=== PATIENT | female | born 1940 | race Caucasian/White ===

== ENCOUNTER 2020-01-19 11:08 | Emergency (ER) | payer MEDICARE, OTHER, SELFPAY ==
[2020-01-19] VITALS (7 sets, daily range): BP systolic 116–160; BP diastolic 67–86; PULSE 62–70; RESP 18–27; TEMP 36.8; O2SAT 96–100
--- NOTE | 2020-01-19 11:20 | DI.RAD.S_ITS ---
PROCEDURE: XR CHEST 1V INDICATIONS: chest pain TECHNIQUE: One view of the chest was acquired. COMPARISON: None. FINDINGS: Surgical changes and devices: Surgical clips project over the right lung apex.. Lungs and pleura: Lungs are clear no acute opacities. Small nodular densities project over the lateral periphery of the right midlung which may represent foreign bodies external to the patient or calcified granulomas. No pleural effusions or pneumothorax. Mediastinum: Mediastinal contours appear normal. Heart size is normal. Bones and chest wall: No suspicious bony lesions. Overlying soft tissues appear unremarkable. IMPRESSION: No acute cardiopulmonary disease process. Dictated by: Mackenzie López MD, PhD on 01/19/2020 at 11:49 Approved by: Mackenzie López MD, PhD on 01/19/2020 at 11:50
--- NOTE | 2020-01-19 11:29 | ED_ITS ---
HPI - Chest Pain General Chief Complaint: Chest Pain Stated Complaint: Chest pain, labored breathing Time Seen by Provider: 01/19/20 11:23 Source: patient Mode of arrival: Ambulatory Limitations: no limitations History of Present Illness HPI narrative: Patient is an 79-year-old female. No prior history of cardiovas cular disease. She says that she has been told that she has heart failure. States that she does have a history of COPD. Has oxygen at home but rarely uses it except for over the past 24 hours. States she did have a workup for weight initially was thought to be a TIA which resulted in her having a right-sided carotid endarterectomy on Sunday. She stated that during this workup she was told that she did not have a TIA or stroke. She was discharged from the hospital on Sunday. States Sunday night she was uncomfortable especially with lying down. Did have some shortness of breath which she states that she felt like she did not have while she was in the hospital. This worsened yester day. She states she has had shortness of breath and chest pain constantly since yesterday afternoon. States she could not lay flat last night secondary to shortness of breath. She states that at 1 point she was told that she needed to be on a ?water pill? she states that she is not taking this. She also was told that she was ?borderline anemic ?during her hospital stay however she was not transfused any blood. She was given a prescription for iron. Related Data Home Medications Medication Instructions Recorded Confirmed Breo Ellipta 1 puff INH DIRECTED #0 02/15/18 donepezil 10 mg PO DAILY #0 02/15/18 01/19/20 Holy Basil 1 dose PO DIRECTED 01/19/20 01/19/20 Vitamin D3 1 cap PO DAILY 01/19/20 01/19/20 acetaminophen 650 mg PO Q4H PRN 01/19/20 01/19/20 albuterol sulfate 0.63 mg INHALATION QID 01/19/20 01/19/20 aspirin 81 mg PO DAILY 01/19/20 01/19/20 clopidogrel 75 mg PO DAILY 01/19/20 01/19/20 docusate sodium 100 - 200 mg PO BID PRN 01/19/20 01/19/20 ezetimibe 10 mg PO DAILY 01/19/20 01/19/20 omega 7-lxo-zmj-fish oil [[place]-3] 1 cap PO DAILY 01/19/20 01/19/20 omeprazole 20 mg PO DAILY 01/19/20 01/19/20 rosuvastatin 20 mg PO DAILY 01/19/20 01/19/20 spironolactone 25 mg PO DAILY 01/19/20 01/19/20 vit C-vit S-ddftjp-izbm-lutein 1 cap PO DAILY 01/19/20 01/19/20 [PreserVision Lutein] Allergies Allergy/AdvReac Type Severity Reaction Status Date / Time No Known Drug Allergies Allergy Verified 01/19/20 11:34 Review of Systems Constitutional Constitutional: Denies fever(s) Cardiovascular Cardiovascular: Reports chest pain, Denies rapid heart rate, Reports edema, Denies irregular heart rhythm, Reports leg edema, Reports dyspnea and Reports dyspnea on exertion Respiratory Respiratory: Denies cough, Reports dyspnea and Reports dyspnea on exertion Gastrointestinal Gastrointestinal: Denies abdominal pain, Denies nausea and Denies vomiting Genitourinary Genitourinary: Denies dysuria Musculoskeletal Musculoskeletal: Denies myalgias and Denies arthralgias Integumentary/Breasts Skin/Breast: Denies lesions and Denies rash Hematologic/Lymphatic Hematologic/Lymphatic: Denies easy bleeding and Denies easy bruising Patient History Medical History Amaurosis fugax, right eye (Acute) Anemia (Acute) Congestive heart failure (Acute) COPD (chronic obstructive pulmonary disease) (Acute) History of tobacco use (Acute) Social History Smoking Status: Former smoker Exam Initial Vital Signs Initial Vital Signs: Vital Signs Temperature 98.3 F 01/19/20 11:10 Pulse Rate 70 01/19/20 11:10 Respiratory Rate 27 H 01/19/20 11:10 Blood Pressure 145/75 H 01/19/20 11:10 Pulse Oximetry 97 01/19/20 11:10 Const General: cooperative, healthy appearing, comfortable and well developed Limitations: mental status not altered [facility] Head: normal to inspection and normocephalic Resp Effort & Inspection: normal respiratory effort Auscultation: clear to auscultation bilaterally Cardio Rate: regular rate Rhythm: regular rhythm Skin Lesions: no lesions Rashes: no rashes Neuro General: alert and awake Cognition: normal cognition Speech: speech normal Extrem General: edema Psych Appearance: grossly normal and well kempt Scores GCS R[place]on coma scale eye opening: Spontaneous Nancy coma scale verbal response: Orientated Nancy coma scale motor response: Obey commands R[place] coma scale total score: 15 Course Orders Ordered: ED Orders 01/19/20 11:20 XR chest 1V Stat EKG-12 Lead Stat 01/19/20 11:24 Complete Blood Count AUTO DIFF Stat Comprehensive Metabolic Panel Stat D Dimer Stat Lipase Stat Magnesium Stat NT-proBNP (BNP-Adult 18+) Stat Troponin & CK Cardiac Panel Stat Sodium Chloride (Normal Saline 0.9%) 1,000 mls @ 150 mls/hr IV CONT PEACE Last Admin: 01/19/20 11:46 Dose: Not Given Documented by: ARIANNA Discontinued Medications Aspirin (Aspirin Chew) 324 mg PO NOW ONE Stop: 01/19/20 11:21 Last Admin: 01/19/20 11:49 Dose: 324 mg Documented by: ARIANNA Furosemide (Lasix) 60 mg IV NOW ONE Stop: 01/19/20 12:02 Last Admin: 01/19/20 12:32 Dose: 60 mg Documented by: PETRA Vital Signs Vital signs: Vital Signs - 8 hr 01/19/20 11:10 01/19/20 11:30 01/19/20 12:02 Temperature 98.3 F Pulse Rate 70 70 70 Respiratory Rate 27 H 24 24 Blood Pressure 145/75 H Blood Pressure [Right Arm] 139/81 116/67 Pulse Oximetry 97 97 97 01/19/20 12:45 01/19/20 13:15 01/19/20 13:45 Temperature Pulse Rate 65 62 62 Respiratory Rate 22 24 18 Blood Pressure Blood Pressure [Right Arm] 154/73 H 160/86 H 142/74 H Pulse Oximetry 97 99 96 MDM - Chest Pain Lab Data Attestation: I reviewed the patient's lab results. Result diagrams: 01/19/20 11:24 01/19/20 11:24 Labs: Lab Results 01/19/20 01/19/20 01/19/20 Range/Units 11:24 11:24 11:24 WBC 6.2 (4.5-11.0) X10^3/uL RBC 3.24 L (4.0-5.2) X10^6/uL Hgb 9.3 L (12.0-16.0) g/dL Hct 28.0 L (36-46) % MCV 86.3 (80-100) fL MCH 28.6 (26-34) PG MCHC 33.1 (30-36) % RDW 14.8 (11.6-14.8) % Plt Count 217 (150-400) X10^3/uL Neut % (Auto) 73.8 (50-75) % Lymph % (Auto) 12.7 L (25-40) % [place] % (Auto) 11.5 (3-14) % Eos % (Auto) 1.3 L (2-4) % Baso % (Auto) 0.7 (0-2) % Neut # (Auto) 4500 (0151-0555) /uL Lymph # (Auto) 800 L (5363-0491) /uL [place] # (Auto) 700 (0-900) /uL Eos # (Auto) 100 (0-450) /uL Baso # (Auto) 0 (0-100) /uL D-Dimer (<230) ng/mL Sodium 134 L (137-145) mmol/L Potassium 3.6 (3.4-5.1) mmol/L Chloride 98 (98-107) mmol/L Carbon Dioxide 28 (22-32) mmol/L BUN 12 (7-17) mg/dL Creatinine 0.70 (0.52-1.04) mg/dL Estimated GFR > 60.0 (>60) mL/min BUN/Creatinine Ratio 17.1 (6-22) Glucose 150 H (80-110) mg/dL Calcium 8.9 (8.4-10.2) mg/dL Magnesium 1.8 (1.6-2.3) mg/dL Total Bilirubin 0.4 (0.2-1.3) mg/dL AST 35 (14-36) IU/L ALT 27 (<35) IU/L Alkaline Phosphatase 64 (38-126) U/L Total Creatine Kinase 62 (30-135) U/L CK-MB (CK-2) TNP CK-MB (CK-2) Rel Index TNP Troponin I < 0.012 (0.01-0.034) ng/mL NT-Pro-B Natriuret Pep 1280 H (<450) pg/mL Total Protein 6.3 (6.3-8.2) g/dL Albumin 3.6 (3.5-5.0) g/dL Globulin 2.7 (1.7-4.1) g/dL Albumin/Globulin Ratio 1.3 (1.0-2.8) Lipase 60 (23-300) U/L 01/19/20 Range/Units 11:24 WBC (4.5-11.0) X10^3/uL RBC (4.0-5.2) X10^6/uL Hgb (12.0-16.0) g/dL Hct (36-46) % MCV (80-100) fL MCH (26-34) PG MCHC (30-36) % RDW (11.6-14.8) % Plt Count (150-400) X10^3/uL Neut % (Auto) (50-75) % Lymph % (Auto) (25-40) % [place] % (Auto) (3-14) % Eos % (Auto) (2-4) % Baso % (Auto) (0-2) % Neut # (Auto) (8145-5102) /uL Lymph # (Auto) (2477-0048) /uL [place] # (Auto) (0-900) /uL Eos # (Auto) (0-450) /uL Baso # (Auto) (0-100) /uL D-Dimer 367 H (<230) ng/mL Sodium (137-145) mmol/L Potassium (3.4-5.1) mmol/L Chloride (98-107) mmol/L Carbon Dioxide (22-32) mmol/L BUN (7-17) mg/dL Creatinine (0.52-1.04) mg/dL Estimated GFR (>60) mL/min BUN/Creatinine Ratio (6-22) Glucose (80-110) mg/dL Calcium (8.4-10.2) mg/dL Magnesium (1.6-2.3) mg/dL Total Bilirubin (0.2-1.3) mg/dL AST (14-36) IU/L ALT (<35) IU/L Alkaline Phosphatase (38-126) U/L Total Creatine Kinase (30-135) U/L CK-MB (CK-2) CK-MB (CK-2) Rel Index Troponin I (0.01-0.034) ng/mL NT-Pro-B Natriuret Pep (<450) pg/mL Total Protein (6.3-8.2) g/dL Albumin (3.5-5.0) g/dL Globulin (1.7-4.1) g/dL Albumin/Globulin Ratio (1.0-2.8) Lipase (23-300) U/L Imaging Data Chest x-ray: Radiologist's Impression: [address] [address] XRay Report Signed Patient: Delfino Otero [facility]#: [id number] : 9Acct:[id number] Age/Sex: 79 / FDate of Service: 01/19/20 Loc: ED Accession Number: [id number] Procedure: XR chest 1V Ordering Provider: Alex Myles D.O. PROCEDURE: XR CHEST 1V INDICATIONS: chest pain TECHNIQUE: One view of the chest was acquired. COMPARISON: None. FINDINGS: Surgical changes and devices: Surgical clips project over the right lung apex.. Lungs and pleura: Lungs are clear no acute opacities. Small nodular densities project over the lateral periphery of the right midlung which may represent foreign bodies external to the patient or calcified granulomas. No pleural effusions or pneumothorax. Mediastinum: Mediastinal contours appear normal. Heart size is normal. Bones and chest wall: No suspicious bony lesions. Overlying soft tissues appear unremarkable. IMPRESSION: No acute cardiopulmonary disease process. Dictated by: Mackenzie López MD, PhD on 01/19/2020 at 11:49 Approved by: Mackenzie López MD, PhD on 01/19/2020 at 11:50 ECG Data Attestation: I personally reviewed and interpreted this ECG as follows: Prior ECG tracings: not available for review Interpretation: Sinus rhythm Ventricular rate is 67 Normal axis Normal QRS Normal QTC Nonspecific ST T wave changes MDM Narrative Medical decision making narrative: Patient is anemic however not at the point were I would recommend transfusion. She does have iron at home that she should be taking. I do not feel that this is the reason for her arrival today. Does have an elevated BNP. Unsure this is baseline. I have no prior BNPs for comparison. Her clinical presentation is concerning for CHF. She has had a diagnosis of CHF in the past. She does not know what her last ejection fraction was. Her medicine list does have spironolactone listed however per the patient's own report she has not taking it in 2 weeks. She did have a recent admission to the hospital for right-sided carotid endarterectomy where she did receive fluids. Her chest x-ray does not show definitive fluid overload and her clinical exam does not have any crackles. She does have a history of COPD. Does have oxygen at home that she can use as needed. Afebrile. Low suspicion for pneumonia. Her D-dimer is negative. Low suspicion for PE. EKG has nonspecific changes. The EKG machine does rate and acute SD however disagree this. Her clinical presentation is not consistent with this. She does not have any ST elevations. She received Lasix here in the ER. She did urinate multiple times. She states that after urinating she feels much better. She states that she feels like she can't take a deep breath. She no longer has any chest discomfort. Patient states that she feels like she can go home. She does not want to be admitted to the hospital. I do not feel that this is unreasonable given her clinical presentation. We did discuss the importance of her taking her spironolactone. She was instructed that she could take it again this evening. She was given strict return precautions and follow-up instructions. She expressed understanding and agreement. Discharge Plan Departure Patient Disposition: Home Clinical Impression: CHF (congestive heart failure) Qualifiers: Heart failure type: unspecified Heart failure chronicity: unspecified Qualified Code(s): I50.9 - Heart failure, unspecified Instructions: DI for Heart Failure Activity Restrictions/Additional Instructions: I recommend that you take all of your medications as directed to include the spironolactone. You can take the spironolactone this evening despite us given you the Lasix here in the emergency department. I recommend that you follow all of your postoperative instructions given to you by the vascular surgeon. Recommend you contact your primary provider and also your department sales manager for a follow-up. Please return to the emergency department for any new or worsening symptoms Prescriptions: No Action donepezil 10 MG tablet 10 mg PO DAILY Qty: 0 RF: 0 Breo Ellipta 100 MCG/25 MCG blister with device 1 puff INH DIRECTED Qty: 0 RF: 0 albuterol sulfate 0.63 mg/3 mL Solution For Nebulization 0.63 mg INHALATION QID RF: 0 acetaminophen 325 mg Tablet 650 mg PO Q4H PRN (Reason: Fever Or Pain) RF: 0 docusate sodium 100 mg Capsule 100 - 200 mg PO BID PRN (Reason: Constipation) RF: 0 Holy Basil 1 dose PO DIRECTED RF: 0 clopidogrel 75 mg Tablet 75 mg PO DAILY RF: 0 aspirin 81 mg Tablet,Delayed Release (Dr/Ec) 81 mg PO DAILY RF: 0 spironolactone 25 mg Tablet 25 mg PO DAILY RF: 0 omeprazole 20 mg Capsule,Delayed Release(Dr/Ec) 20 mg PO DAILY RF: 0 ezetimibe 10 mg Tablet 10 mg PO DAILY RF: 0 rosuvastatin 20 mg Tablet 20 mg PO DAILY RF: 0 PreserVision Lutein 226 mg-200 unit -5 mg-0.8 mg Capsule 1 cap PO DAILY RF: 0 [place]-3 350 mg-235 mg- 90 mg-597 mg Capsule,Delayed Release(Dr/Ec) 1 cap PO DAILY RF: 0 Vitamin D3 1 cap PO DAILY RF: 0
[2020-01-19 11:32] LABS: Add Manual Diff / Slide Review NO; Basophils Absolute Auto 0 /uL (0-100); Basophils Percent Auto 0.7 % (0-2); Eosinophils Absolute Auto 100 /uL (0-450); Eosinophils Percent Auto 1.3 % (2-4); Hemoglobin 9.3 g/dL (12.0-16.0); Lymphocytes Absolute Auto 800 /uL (1100-4500); Lymphocytes Percent Auto 12.7 % (25-40); Mean Corpuscular HGB Conc 33.1 % (30-36); Mean Corpuscular Hemoglobin 28.6 PG (26-34); Mean Corpuscular Volume 86.3 fL (80-100); Monocytes Absolute Auto 700 /uL (0-900); Monocytes Percent Auto 11.5 % (3-14); Neutrophils Absolute Auto 4500 /uL (1500-7000); Neutrophils Percent Auto 73.8 % (50-75); Platelet Count 217 X10^3/uL (150-400); Red Blood Cell Count 3.24 X10^6/uL (4.0-5.2); Red Cell Distribution Width 14.8 % (11.6-14.8); White Blood Cell Count 6.2 X10^3/uL (4.5-11.0)
--- NOTE | 2020-01-19 11:36 | PC.NURSE ---
EKG noted STEMI, reviewed immediately by Dr. Myles. Getting old EKG by from Prov done last week.
--- NOTE | 2020-01-19 11:39 | PC.NURSE ---
Noted 5+ lb weight gain. Has not been taking spirolactone this past week. I think they left it out of my box.
[2020-01-19 11:45] LABS: Alanine Aminotransferase 27 IU/L (<35); Albumin 3.6 g/dL (3.5-5.0); Albumin Globulin Ratio 1.3 (1.0-2.8); Alkaline Phosphatase 64 U/L (38-126); Aspartate Aminotransferase 35 IU/L (14-36); BUN Creatinine Ratio 17.1 (6-22); Bilirubin Total 0.4 mg/dL (0.2-1.3); Blood Urea Nitrogen 12 mg/dL (7-17); Calcium 8.9 mg/dL (8.4-10.2); Carbon Dioxide 28 mmol/L (22-32); Chloride 98 mmol/L (98-107); Creatine Kinase 62 U/L (30-135); Estimated Glomerular Filt Rate > 60.0 mL/min (>60); Globulin 2.7 g/dL (1.7-4.1); Glucose 150 mg/dL (80-110); HEMOLYSIS < 15 (0-50); Lipase 60 U/L (23-300); Magnesium 1.8 mg/dL (1.6-2.3); Potassium 3.6 mmol/L (3.4-5.1); Sodium 134 mmol/L (137-145); Total Protein 6.3 g/dL (6.3-8.2)
[2020-01-19] MEDS: ASPIRIN 81 MG CHEW TAB 324 MG PO (11:49)
[2020-01-19 11:56] LABS: Troponin I < 0.012 ng/mL (0.01-0.034)
[2020-01-19 11:58] LABS: NT-proBNP (BNP-Adult 18+) 1280 pg/mL (<450)
[2020-01-19] MEDS: FUROSEMIDE 100 MG/10 ML VIAL 60 MG IV (12:32)
[2020-01-19 13:13] LABS: D Dimer 367 ng/mL (<230)
== END 2020-01-19 14:45 | disposition home or self-care (01) ==
PROVIDERS: Emergency Provider Emergency Medicine
DX: I50.9 Heart failure, unspecified (principal); D64.9 Anemia, unspecified; J44.9 Chronic obstructive pulmonary disease, unspecified
CPT/HCPCS: 36415; 71045; 80053; 82550; 83690; 83735; 83880; 84484; 85025; 85379; 93005; 93010; 96374; 99285; J1940

== ENCOUNTER 2020-01-27 22:47 | Emergency (ER) | payer MEDICARE, OTHER, SELFPAY ==
[2020-01-27 22:58] VITALS: BMI 20.7
[2020-01-27 23:02] VITALS: BP 145/86; PULSE 65; RESP 19; TEMP 36.8; O2SAT 99
--- NOTE | 2020-01-27 23:21 | DI.RAD.S_ITS ---
PROCEDURE: XR CHEST 1V INDICATIONS: chest pain TECHNIQUE: One view of the chest was acquired. COMPARISON: [facility], CR, XR CHEST 1V, 01/19/2020, 11:22. FINDINGS: Surgical changes and devices: Right apical surgical clips. Lungs and pleura: Calcified granuloma within the right midlung. Lungs are otherwise clear. No pleural effusions or pneumothorax. Mediastinum: Mediastinal contours appear normal. Heart size is normal. Bones and chest wall: No suspicious bony lesions. Overlying soft tissues appear unremarkable. IMPRESSION: No acute process. Dictated by: Emily Block M.D. on 01/28/2020 at 8:12 Approved by: Emily Block M.D. on 01/28/2020 at 8:13
[2020-01-27 23:45] LABS: Add Manual Diff / Slide Review NO; Basophils Absolute Auto 100 /uL (0-100); Basophils Percent Auto 1.2 % (0-2); Eosinophils Absolute Auto 300 /uL (0-450); Eosinophils Percent Auto 6.9 % (2-4); Hematocrit 27.5 % (36-46); Hemoglobin 9.1 g/dL (12.0-16.0); Lymphocytes Absolute Auto 1300 /uL (1100-4500); Lymphocytes Percent Auto 26.8 % (25-40); Mean Corpuscular Hemoglobin 28.8 PG (26-34); Mean Corpuscular Volume 87.2 fL (80-100); Monocytes Absolute Auto 500 /uL (0-900); Monocytes Percent Auto 9.9 % (3-14); Neutrophils Absolute Auto 2700 /uL (1500-7000); Neutrophils Percent Auto 55.2 % (50-75); Platelet Count 309 X10^3/uL (150-400); Red Blood Cell Count 3.15 X10^6/uL (4.0-5.2); Red Cell Distribution Width 15.6 % (11.6-14.8); White Blood Cell Count 4.9 X10^3/uL (4.5-11.0)
[2020-01-27 23:48] LABS: INR 0.9 (0.9-1.3); Prothrombin Time 10.4 SECONDS (10.1-12.7)
[2020-01-27 23:50] LABS: PTT Partial Thromboplastin Tim 27 SECONDS (26.4-36.2)
[2020-01-27 23:52] LABS: Alanine Aminotransferase 24 IU/L (<35); Albumin 3.7 g/dL (3.5-5.0); Albumin Globulin Ratio 1.3 (1.0-2.8); Alkaline Phosphatase 59 U/L (38-126); Aspartate Aminotransferase 31 IU/L (14-36); BUN Creatinine Ratio 29.9 (6-22); Bilirubin Total 0.2 mg/dL (0.2-1.3); Blood Urea Nitrogen 26 mg/dL (7-17); Calcium 9.2 mg/dL (8.4-10.2); Carbon Dioxide 30 mmol/L (22-32); Chloride 100 mmol/L (98-107); Creatine Kinase 74 U/L (30-135); Estimated Glomerular Filt Rate > 60.0 mL/min (>60); Globulin 2.9 g/dL (1.7-4.1); Glucose 92 mg/dL (80-110); HEMOLYSIS < 15 (0-50); Lipase 99 U/L (23-300); Potassium 4.2 mmol/L (3.4-5.1); Sodium 133 mmol/L (137-145); Total Protein 6.6 g/dL (6.3-8.2)
[2020-01-28 00:04] LABS: NT-proBNP (BNP-Adult 18+) 310 pg/mL (<450)
[2020-01-28 00:25] LABS: Troponin I < 0.012 ng/mL (0.01-0.034)
[2020-01-28 00:30] VITALS: BP 164/89; PULSE 66; RESP 22; O2SAT 96
--- NOTE | 2020-01-28 00:54 | ED_ITS ---
HPI - Chest Pain General Chief Complaint: Chest Pain Stated Complaint: chest pain, difficulty breathing Time Seen by Provider: 01/28/20 00:15 Source: patient Mode of arrival: Ambulatory Limitations: no limitations History of Present Illness HPI narrative: This is an 79-year-old female comes in with complaint of chest pain and difficulty breathing. She states that she has been having this going on for a while. She had her carotid endarterectomy in afterwards was discharged. She states she developed CHF and was seen on the 18 of January. Patient states at that time she was very short of breath, had swelling her weight was up and that has improved. Since then she still feels like she can't always take a break. She states sometimes she can walk around and she feels fine and other times she feels short of breath. She states she particularly notes chest pain and shortness of breath when she lays flat, it is improved when she sits upright. She also notices when she bends over. She states she will feel short of breath at the same time. She has not had any fevers, no chills. No cough. She states that as exerting herself does not necessarily always cause her symptoms. She states that she was put on a diuretic and has since had improvement in her symptoms but just does not feel like she is back to normal from before her surgery. She is also taking iron pills and had been offered a transfusion while at the hospital but deferred. She states she has had no nausea, no vomiting no issues with bowel movements or urination. She is on Plavix for her carotid endarterectomy for a total of 30 days and states she only has a few more days left, she has no dyslipidemia, she is on a diuretic as well as iron. She denies any diabetes, hypertension or cardiac arrhythmias. Besides her right carotid endarterectomy she has had a hysterectomy. She states she had this because her medical sales representative found it. She has not had a stress test or heart catheterization any time recently. She quit smoking about 14 years ago, drinks a glass of wine nightly and denies any illicit. She is accompanied by her fr iend at bedside Related Data Home Medications Medication Instructions Recorded Confirmed Breo Ellipta 1 puff INH DIRECTED #0 02/15/18 01/19/20 donepezil 10 mg PO DAILY #0 02/15/18 01/19/20 Holy Basil 1 dose PO DIRECTED 01/19/20 01/19/20 Vitamin D3 1 cap PO DAILY 01/19/20 01/19/20 acetaminophen 650 mg PO Q4H PRN 01/19/20 01/19/20 albuterol sulfate 0.63 mg INHALATION QID 01/19/20 01/19/20 aspirin 81 mg PO DAILY 01/19/20 01/19/20 clopidogrel 75 mg PO DAILY 01/19/20 01/19/20 docusate sodium 100 - 200 mg PO BID PRN 01/19/20 01/19/20 ezetimibe 10 mg PO DAILY 01/19/20 01/19/20 omega 0-cmr-uld-fish oil [Durant-3] 1 cap PO DAILY 01/19/20 01/19/20 omeprazole 20 mg PO DAILY 01/19/20 01/19/20 rosuvastatin 20 mg PO DAILY 01/19/20 01/19/20 spironolactone 25 mg PO DAILY 01/19/20 01/19/20 vit C-vit Q-lbnbhe-ufsw-lutein 1 cap PO DAILY 01/19/20 01/19/20 [PreserVision Lutein] Allergies Allergy/AdvReac Type Severity Reaction Status Date / Time No Known Drug Allergies Allergy Verified 01/19/20 11:34 Review of Systems Review of Systems ROS Unobtainable: All systems reviewed & are unremarkable except as noted in HPI and below Patient History Medical History Amaurosis fugax, right eye (Acute) Anemia (Acute) Congestive heart failure (Acute) COPD (chronic obstructive pulmonary disease) (Acute) History of tobacco use (Acute) Surgical History (Updated 01/28/20 @ 01:44 by Michelle Gleason DO) History of carotid endarterectomy (Acute) Social History Smoking Status: Former smoker Smoking Status: Former smoker alcohol intake frequency: 0-2 drinks per day Substance Use Type: does not use Exam Narrative Exam Narrative: GENERAL: Alert and oriented x three, thin elderly female in mild distress HEENT: Head normocephalic, atraumatic, EOMI, pupils reactive, face symmetric, moist mucous membranes NECK: Supple, full range of motion, patient has healing incision on the right neck consistent with a prior CEA, clean dry and intact with a little bit of hyperkeratosis but no erythema, discharge or other skin changes CARDIOVASCULAR: Regular rate and rhythm without murmurs, rubs or gallops. RESPIRATORY: Breath sounds equal bilaterally, no wheezes rales or rhonchi. No tachypnea. No accessory muscle use. Speaks in full sentences. ABDOMEN: Soft, nontender. Normoactive bowel sounds all 4 quadrants. No guar ding or rebound, rigidity, no mass : No CVA tenderness EXTREMITIES: Normal range of motion, no clubbing or edema. Neurovascularly intact NEUROLOGICAL: Cranial nerves II through XII grossly intact. Moving all extremities SKIN: Warm, dry, no petechiae, no rashes or lesions. Initial Vital Signs Initial Vital Signs: Vital Signs Temperature 98.3 F 01/27/20 23:02 Pulse Rate 65 01/27/20 23:02 Respiratory Rate 19 01/27/20 23:02 Blood Pressure 145/86 H 01/27/20 23:02 Pulse Oximetry 99 01/27/20 23:02 Scores HEART Score Heart Score history: Slightly Suspicious Heart Score EKG: Non-Specific repolarization disturbance Heart Score Age: > or = 65 years old Heart Score risk factors: 1-2 risk factors Heart Score troponin: < or = to normal limit Heart Score Total: 4 Course Orders Ordered: ED Orders 01/27/20 23:21 XR chest 1V Stat 01/27/20 23:30 BNP [NT-proBNP (BNP-Adult 18+)] Stat Complete Blood Count AUTO DIFF Stat Comprehensive Metabolic Panel Stat Lipase Stat Partial Thromboplastin Time Stat Prothrombin Time INR Stat Troponin & CK Cardiac Panel Stat 01/28/20 01:38 EKG-12 Lead Stat 01/28/20 02:02 Troponin I Stat Vital Signs Vital signs: Vital Signs - 8 hr 01/27/20 23:02 01/28/20 00:30 01/28/20 01:32 Temperature 98.3 F Pulse Rate 65 66 68 Respiratory Rate 19 22 20 Blood Pressure [Right Arm] 145/86 H 164/89 H 179/82 H Pulse Oximetry 99 96 98 MDM - Chest Pain Lab Data Attestation: I reviewed the patient's lab results. Result diagrams: 01/27/20 23:30 01/27/20 23:30 Labs: Lab Results 01/27/20 01/27/20 01/27/20 Range/Units 23:30 23:30 23:30 WBC 4.9 (4.5-11.0) X10^3/uL RBC 3.15 L (4.0-5.2) X10^6/uL Hgb 9.1 L (12.0-16.0) g/dL Hct 27.5 L (36-46) % MCV 87.2 (80-100) fL MCH 28.8 (26-34) PG MCHC 33.0 (30-36) % RDW 15.6 H (11.6-14.8) % Plt Count 309 (150-400) X10^3/uL Neut % (Auto) 55.2 (50-75) % Lymph % (Auto) 26.8 (25-40) % [place] % (Auto) 9.9 (3-14) % Eos % (Auto) 6.9 H (2-4) % Baso % (Auto) 1.2 (0-2) % Neut # (Auto) 2700 (2168-3687) /uL Lymph # (Auto) 1300 (2512-8864) /uL [place] # (Auto) 500 (0-900) /uL Eos # (Auto) 300 (0-450) /uL Baso # (Auto) 100 (0-100) /uL PT 10.4 (10.1-12.7) SECONDS INR 0.9 (0.9-1.3) APTT 27 (26.4-36.2) SECONDS Sodium 133 L (137-145) mmol/L Potassium 4.2 (3.4-5.1) mmol/L Chloride 100 (98-107) mmol/L Carbon Dioxide 30 (22-32) mmol/L BUN 26 H (7-17) mg/dL Creatinine 0.87 (0.52-1.04) mg/dL Estimated GFR > 60.0 (>60) mL/min BUN/Creatinine Ratio 29.9 H (6-22) Glucose 92 (80-110) mg/dL Calcium 9.2 (8.4-10.2) mg/dL Total Bilirubin 0.2 (0.2-1.3) mg/dL AST 31 (14-36) IU/L ALT 24 (<35) IU/L Alkaline Phosphatase 59 (38-126) U/L Total Creatine Kinase 74 (30-135) U/L CK-MB (CK-2) TNP CK-MB (CK-2) Rel Index TNP Troponin I < 0.012 (0.01-0.034) ng/mL NT-Pro-B Natriuret Pep 310 (<450) pg/mL Total Protein 6.6 (6.3-8.2) g/dL Albumin 3.7 (3.5-5.0) g/dL Globulin 2.9 (1.7-4.1) g/dL Albumin/Globulin Ratio 1.3 (1.0-2.8) Lipase 99 D (23-300) U/L 01/28/20 Range/Units 02:02 WBC (4.5-11.0) X10^3/uL RBC (4.0-5.2) X10^6/uL Hgb (12.0-16.0) g/dL Hct (36-46) % MCV (80-100) fL MCH (26-34) PG MCHC (30-36) % RDW (11.6-14.8) % Plt Count (150-400) X10^3/uL Neut % (Auto) (50-75) % Lymph % (Auto) (25-40) % [place] % (Auto) (3-14) % Eos % (Auto) (2-4) % Baso % (Auto) (0-2) % Neut # (Auto) (4241-9533) /uL Lymph # (Auto) (8556-5005) /uL [place] # (Auto) (0-900) /uL Eos # (Auto) (0-450) /uL Baso # (Auto) (0-100) /uL PT (10.1-12.7) SECONDS INR (0.9-1.3) APTT (26.4-36.2) SECONDS Sodium (137-145) mmol/L Potassium (3.4-5.1) mmol/L Chloride (98-107) mmol/L Carbon Dioxide (22-32) mmol/L BUN (7-17) mg/dL Creatinine (0.52-1.04) mg/dL Estimated GFR (>60) mL/min BUN/Creatinine Ratio (6-22) Glucose (80-110) mg/dL Calcium (8.4-10.2) mg/dL Total Bilirubin (0.2-1.3) mg/dL AST (14-36) IU/L ALT (<35) IU/L Alkaline Phosphatase (38-126) U/L Total Creatine Kinase (30-135) U/L CK-MB (CK-2) CK-MB (CK-2) Rel Index Troponin I < 0.012 (0.01-0.034) ng/mL NT-Pro-B Natriuret Pep (<450) pg/mL Total Protein (6.3-8.2) g/dL Albumin (3.5-5.0) g/dL Globulin (1.7-4.1) g/dL Albumin/Globulin Ratio (1.0-2.8) Lipase (23-300) U/L Imaging Data Chest x-ray: Attestation: I personally reviewed and interpreted this imaging study as follows: My Impression: No acute process, appears similar does chest x-ray from 01/19/2020 ECG Data Attestation: I personally reviewed and interpreted this ECG as follows: Interpretation: Sinus rhythm, rate of 64 P are 156 and QRS of 113 with QTC of 413. Patient has no ST elevation appreciated. No depression. She does have changes consistent with atrial enlargement. And a widened QRS. Patient's prior EKG from 01/19/2028 this appears similar except for lead V2. EKG 2. With a sinus rhythm with a rate of 61 P are 163 QRS of 117 and a QTC of 420. EKG appears similar to prior EKG from today. Nonspecific change. MDM Narrative Medical decision making narrative: Discussed with patient although some of her symptoms are not very consistent with a coronary cause she did just have a carotid endarterectomy so was likely she does have some atherosclerosis. We discussed observation which she defers. She is agreeable to a repeat 2 hour troponin EKG although she is aware that this is not as conservative measure and could easily this cardiac causes. Her symptoms do not seem consistent with a PE at this time. Chest x-ray does not appear to show any new pneumonia and she has not had any infectious symptoms. She is anemic although her anemia appears stable with her hemoglobin being 9.3 on the 2nd. Unclear her exact hemoglobin level just prior to surgery but the fact that she was offered transfusion makes me suspect she did have some significant blood loss on this may be causing some of her symptoms. Electrolytes show sodium 133 with a BUN of 26, initial troponin is negative and her BNP is 310 today was 1280 on the 2nd. Patient was offered observation and further about possibly stress testing but she defers. Yaya tan discussed doing a repeat troponin EKG which are both negative with no new findings. I did speak with her primary care Dr. Salmon who will help set up close follow-up and we discussed may need some further evaluation/stress testing or further cardiac workup. Discharge Plan Departure Patient Disposition: Home Clinical Impression: Atypical chest pain Instructions: DI for Atypical Chest Pain Activity Restrictions/Additional Instructions: Follow up with your primary care physician or medical sales representative in the next 2-3 days for recheck. Discuss with your physician about stress testing if they feel appropriate vs. other cardiac workup. Continue home medications as prescribed. Return to ER for new or worsening symptoms, passing out, increasing shortness of breath, lightheadedness, coughing up blood or color productive sputum, new chest pain or pressure, swelling in her lower extremities, persistent vomiting or other new or concerning symptoms. Prescriptions: No Action donepezil 10 MG tablet 10 mg PO DAILY Qty: 0 RF: 0 Breo Ellipta 100 MCG/25 MCG blister with device 1 puff INH DIRECTED Qty: 0 RF: 0 albuterol sulfate 0.63 mg/3 mL Solution For Nebulization 0.63 mg INHALATION QID RF: 0 acetaminophen 325 mg Tablet 650 mg PO Q4H PRN (Reason: Fever Or Pain) RF: 0 docusate sodium 100 mg Capsule 100 - 200 mg PO BID PRN (Reason: Constipation) RF: 0 Holy Basil 1 dose PO DIRECTED RF: 0 clopidogrel 75 mg Tablet 75 mg PO DAILY RF: 0 aspirin 81 mg Tablet,Delayed Release (Dr/Ec) 81 mg PO DAILY RF: 0 spironolactone 25 mg Tablet 25 mg PO DAILY RF: 0 omeprazole 20 mg Capsule,Delayed Release(Dr/Ec) 20 mg PO DAILY RF: 0 ezetimibe 10 mg Tablet 10 mg PO DAILY RF: 0 rosuvastatin 20 mg Tablet 20 mg PO DAILY RF: 0 PreserVision Lutein 226 mg-200 unit -5 mg-0.8 mg Capsule 1 cap PO DAILY RF: 0 Durant-3 350 mg-235 mg- 90 mg-597 mg Capsule,Delayed Release(Dr/Ec) 1 cap PO DAILY RF: 0 Vitamin D3 1 cap PO DAILY RF: 0 Referrals: Patt Salmon MD [Non-Staff] -
[2020-01-28 01:32] VITALS: BP 179/82; PULSE 68; RESP 20; O2SAT 98
[2020-01-28 02:56] VITALS: BP 168/75; PULSE 67; RESP 18; O2SAT 97
[2020-01-28 03:04] LABS: Troponin I < 0.012 ng/mL (0.01-0.034)
== END 2020-01-28 02:57 | disposition home or self-care (01) ==
PROVIDERS: Emergency Provider Emergency Medicine
DX: R07.89 Other chest pain (principal); D64.9 Anemia, unspecified; I50.9 Heart failure, unspecified; J44.9 Chronic obstructive pulmonary disease, unspecified
CPT/HCPCS: 36415; 71045; 80053; 82550; 83690; 83880; 84484; 85025; 85610; 85730; 93005; 93010; 99284

== ENCOUNTER 2020-02-07 20:11 | Emergency (ER) | payer MEDICARE, OTHER, SELFPAY ==
[2020-02-07 20:20] VITALS: BP 173/84; PULSE 82; RESP 28; O2SAT 94
--- NOTE | 2020-02-07 20:41 | PC.NURSE ---
patient reports new Dx of CHF S/P carotid stent placement. Reports long time smoker and Hx of copd. Patient walked into ED with support person laughing and talking with staff they know. within minutes the patient was tripoding on the stretcher struggling to catch her breath. No oxygen required to maintain sats above 92 with no exertion. Patient is currently talking to provider at bedside talking in full sentences.
--- NOTE | 2020-02-07 20:45 | DI.RAD.S_ITS ---
PROCEDURE: XR CHEST 2V INDICATIONS: SOB x2 weeks, progressively worsening TECHNIQUE: 2 views of the chest were acquired. COMPARISON: [facility], CR, XR CHEST 1V, 01/27/2020, 23:28. FINDINGS: Surgical changes and devices: Surgical clips are again noted projecting over the right apical region. Lungs and pleura: There is hyperinflation of the lungs with flattening of the hemidiaphragms compatible with COPD. There are 2 calcified nodules are demonstrated in the right lung consistent with old granulomatous disease. Linear scarring demonstrated in the lung bases. No acute consolidation. No pleural effusions or pneumothorax. Mediastinum: Mediastinal contours are unchanged. Heart size is normal. Bones and chest wall: No suspicious bony abnormalities. Soft tissues appear unremarkable. IMPRESSION: 1. Findings compatible with COPD redemonstrated. 2. No acute consolidation. Dictated by: Drake Raya M.D. on 02/07/2020 at 21:35 Approved by: Drake Raya M.D. on 02/07/2020 at 21:36
--- NOTE | 2020-02-07 20:51 | ED_ITS ---
HPI - SOB/Dyspnea General Chief Complaint: Shortness of Breath/Dyspnea Stated Complaint: cant breath well Time Seen by Provider: 02/07/20 20:30 Source: patient Mode of arrival: Ambulatory History of Present Illness HPI Narrative: HPI: The patient is an 79-year-old female who has a history of COPD has developed shortness of breath that has been persistent for the last 2 weeks. Periodically she states that it feels as though a an elephant is sitting on her left chest. She currently denies any chest discomfort such as this today. She denies any neck pain jaw pain shoulder or arm pain. She denies any fall or injury. She has just developed worsening shortness of breath. She denies ever being told that she had asthma or heart attack high blood pressure or diabetes mellitus. She has had no TB hepatitis or HIV. She denies any si gnificant cough or sputum production as well as any chest pain on deep breathing or coughing. She has had no fever chills but has had night sweats according to gentleman in the room. She periodically has headaches but does not have a headache at this time. She has had no nasal drainage sinus congestion sore throat. She received her influenza vaccine this year. She has had no palpitations or dizziness. There has been no skin rash or bruising abdominal pain nausea vomiting diarrhea or any urinary symptoms. Related Data Home Medications Medication Instructions Recorded Confirmed Breo Ellipta 1 puff INH DIRECTED #0 02/15/18 01/19/20 donepezil 10 mg PO DAILY #0 02/15/18 01/19/20 Holy Basil 1 dose PO DIRECTED 01/19/20 01/19/20 Vitamin D3 1 cap PO DAILY 01/19/20 01/19/20 acetaminophen 650 mg PO Q4H PRN 01/19/20 01/19/20 albuterol sulfate 0.63 mg INHALATION QID 01/19/20 01/19/20 aspirin 81 mg PO DAILY 01/19/20 01/19/20 clopidogrel 75 mg PO DAILY 01/19/20 01/19/20 docusate sodium 100 - 200 mg PO BID PRN 01/19/20 01/19/20 ezetimibe 10 mg PO DAILY 01/19/20 01/19/20 omega 6-wfm-lbi-fish oil [[place]-3] 1 cap PO DAILY 01/19/20 01/19/20 omeprazole 20 mg PO DAILY 01/19/20 01/19/20 rosuvastatin 20 mg PO DAILY 01/19/20 01/19/20 spironolactone 25 mg PO DAILY 01/19/20 01/19/20 vit C-vit B-sobmuo-ldsm-lutein 1 cap PO DAILY 01/19/20 01/19/20 [PreserVision Lutein] Previous Rx's Medication Instructions Recorded albuterol sulfate 2 puff INHALATION Q4-6H PRN #8.5 02/07/20 gram albuterol sulfate 2.5 mg INHALATION Q4H PRN #90 ml 02/07/20 ipratropium-albuterol 3 ml INHALATION Q4-6H PRN #90 ml 02/07/20 prednisone 60 mg PO DAILY #15 tab 02/07/20 Allergies Allergy/AdvReac Type Severity Reaction Status Date / Time No Known Drug Allergies Allergy Verified 01/19/20 11:34 Review of Systems Review of Systems Narrative: Her review of systems were all negative except for those mentioned in the history of present illness. Patient History Medical History Amaurosis fugax, right eye (Acute) Anemia (Acute) Congestive heart failure (Acute) COPD (chronic obstructive pulmonary disease) (Acute) History of tobacco use (Acute) Surgical History History of carotid endarterectomy (Acute) Social History Smoking Status: Former smoker Smoking Status: Former smoker alcohol intake frequency: 0-2 drinks per day Substance Use Type: does not use Exam Narrative Exam Narrative: PHYSICAL EXAM: CONSTITUTIONAL: Awake, Alert, Oriented, Coherent, Cooperative in NAD. Does not appear toxic or ill. She is very hard of hearing. She walked to the bathroom without any difficulty or respiratory distress HEAD: AT/NC EENT: PERRL, FROM of eyes, No epistaxis or nasal drainage Oral mucosa is moist and pink, posterior pharynx is without erythema or exudate. NECK: Supple, no obvious JVD, Trachea is midline without stridor, no palpable LN or masses. SPINE: No gross deformity, no palpable tenderness of the cervical, thoracic, lumbar or sacral spine. No CVA tenderness. THORAX: No deformity, retractions, chest wall tenderness, LUNGS: Markedly decreased breath sounds with poor air movement with both in spiratory squeaks HEART: Normal heart tones, regular rhythm and rate without murmur. Heart tones are very distant. ABDOMEN: Soft, non-tender, without guarding, rebound, rigidity or palpable mass EXTREMITIES: No edema, cyanosis, deformity or calf tenderness. SKIN: No rash, bruising, petechiae or purpura. NEURO: Awake, alert, oriented, conversive, cranial nerves II-XII are symmetrical and normal, moves all 4 extremities and is ambulatory Initial Vital Signs Initial Vital Signs: Vital Signs Pulse Rate 82 02/07/20 20:20 Respiratory Rate 28 H 02/07/20 20:20 Blood Pressure 173/84 H 02/07/20 20:20 Pulse Oximetry 94 02/07/20 20:20 Course Course Course Narrative: The patient's laboratory chemistries are within normal limits. Her chest x-ray reveals findings compatible with COPD. There is no acute consolidation or other cardiopulmonary pathology 2229 the patient states that she feels much better. Breathing easier. She has a home nebulizer.. The patient's EKG obtained on February 06 at 8:20 p.m. 4:30 a.m. reveals a sinus rhythm with a ventricular rate of 67. QRS is slightly prolonged at 102 milliseconds. QTC is normal at 391 milliseconds axis is normal. The patient has a QS wave confirmation in V1 with a biphasic T-wave. There are no other acute diagnostic ST segment changes noted on her EKG. Orders Ordered: ED Orders 02/07/20 20:24 EKG-12 Lead Stat 02/07/20 20:35 Complete Blood Count AUTO DIFF Stat Comprehensive Metabolic Panel Stat Magnesium Stat Procalcitonin Stat Troponin & CK Cardiac Panel Stat 02/07/20 20:43 Consult to Respiratory Therapy Evaluate & Treat 02/07/20 20:45 XR chest 2V Stat 02/07/20 21:07 Lactate (Lactic Acid) Stat 02/07/20 21:11 Blood Culture Stat 02/07/20 21:32 Arterial Blood Gas Stat Discontinued Medications Albuterol/Ipratropium (Duoneb) 6 ml INH NOW ONE Stop: 02/07/20 20:32 Last Admin: 02/07/20 20:55 Dose: 6 ml Documented by: TONI Albuterol/Ipratropium (Duoneb) 3 ml INH NOW ONE Stop: 02/07/20 20:43 Last Admin: 02/07/20 20:56 Dose: Not Given Documented by: TONI Sodium Chloride (Normal Saline 0.9%) 1,000 mls @ 150 mls/hr IV CONT PEACE Last Infusion: 02/07/20 23:05 Dose: 0 mls/hr Documented by: Admin: 02/07/20 21:15 Dose: 150 mls/hr Documented by: ZO Methylprednisolone (Solu-Medrol 125 Mg Vial) 125 mg IV NOW ONE Stop: 02/07/20 20:43 Last Admin: 02/07/20 21:14 Dose: 125 mg Documented by: ZO Vital Signs Vital signs: Vital Signs - 8 hr 02/07/20 20:56 02/07/20 21:30 02/07/20 22:00 Pulse Rate 94 H 72 74 Respiratory Rate 24 22 24 Blood Pressure Blood Pressure [Left Arm] 142/74 H 139/77 Pulse Oximetry 98 97 02/07/20 22:30 02/07/20 23:19 Pulse Rate 79 80 Respiratory Rate 18 18 Blood Pressure 146/76 H Blood Pressure [Left Arm] 154/90 H Pulse Oximetry 96 97 MDM - SOB/Dyspnea Medical Records Attestation: I reviewed the patient's medical records. Lab Data Attestation: I reviewed the patient's lab results. Result diagrams: 02/07/20 20:35 02/07/20 20:35 Labs: Lab Results 02/07/20 02/07/20 02/07/20 Range/Units 20:35 20:35 20:35 WBC 5.3 (4.5-11.0) X10^3/uL RBC 3.29 L (4.0-5.2) X10^6/uL Hgb 9.6 L (12.0-16.0) g/dL Hct 29.4 L (36-46) % MCV 89.4 (80-100) fL MCH 29.3 (26-34) PG MCHC 32.7 (30-36) % RDW 17.3 H (11.6-14.8) % Plt Count 278 (150-400) X10^3/uL Neut % (Auto) 66.3 (50-75) % Lymph % (Auto) 16.0 L (25-40) % [place] % (Auto) 7.5 (3-14) % Eos % (Auto) 8.7 H (2-4) % Baso % (Auto) 1.5 (0-2) % Neut # (Auto) 3500 (2211-1044) /uL Lymph # (Auto) 900 L (2531-1821) /uL [place] # (Auto) 400 (0-900) /uL Eos # (Auto) 500 H (0-450) /uL Baso # (Auto) 100 (0-100) /uL ABG pH (7.35-7.45) ABG pCO2 (35-45) mmHg ABG pO2 (80-100) mmHg ABG HCO3 (22-26) mmol/L ABG Total CO2 (21-31) mmol/L ABG O2 Saturation (95-100) % ABG Base Excess (-2-2) mmol/L FiO2 Sodium (137-145) mmol/L Potassium (3.4-5.1) mmol/L Chloride (98-107) mmol/L Carbon Dioxide (22-32) mmol/L BUN (7-17) mg/dL Creatinine (0.52-1.04) mg/dL Estimated GFR (>60) mL/min BUN/Creatinine Ratio (6-22) Glucose (80-110) mg/dL Lactate (0.7-2.1) mmol/L Calcium (8.4-10.2) mg/dL Magnesium 2.0 (1.6-2.3) mg/dL Total Bilirubin (0.2-1.3) mg/dL AST (14-36) IU/L ALT (<35) IU/L Alkaline Phosphatase (38-126) U/L Total Creatine Kinase 76 (30-135) U/L CK-MB (CK-2) TNP CK-MB (CK-2) Rel Index TNP Troponin I < 0.012 (0.01-0.034) ng/mL Total Protein (6.3-8.2) g/dL Albumin (3.5-5.0) g/dL Globulin (1.7-4.1) g/dL Albumin/Globulin Ratio (1.0-2.8) Procalcitonin < 0.05 (<0.5) ng/mL 02/07/20 02/07/20 02/07/20 Range/Units 20:35 21:07 21:32 WBC (4.5-11.0) X10^3/uL RBC (4.0-5.2) X10^6/uL Hgb (12.0-16.0) g/dL Hct (36-46) % MCV (80-100) fL MCH (26-34) PG MCHC (30-36) % RDW (11.6-14.8) % Plt Count (150-400) X10^3/uL Neut % (Auto) (50-75) % Lymph % (Auto) (25-40) % [place] % (Auto) (3-14) % Eos % (Auto) (2-4) % Baso % (Auto) (0-2) % Neut # (Auto) (1711-2908) /uL Lymph # (Auto) (9136-7573) /uL [place] # (Auto) (0-900) /uL Eos # (Auto) (0-450) /uL Baso # (Auto) (0-100) /uL ABG pH 7.41 (7.35-7.45) ABG pCO2 47.4 H (35-45) mmHg ABG pO2 75 L (80-100) mmHg ABG HCO3 30 H (22-26) mmol/L ABG Total CO2 31 (21-31) mmol/L ABG O2 Saturation 95 (95-100) % ABG Base Excess 5.0 H (-2-2) mmol/L FiO2 21 Sodium 134 L (137-145) mmol/L Potassium 4.2 (3.4-5.1) mmol/L Chloride 99 (98-107) mmol/L Carbon Dioxide 31 (22-32) mmol/L BUN 21 H (7-17) mg/dL Creatinine 0.94 (0.52-1.04) mg/dL Estimated GFR 57.3 L (>60) mL/min BUN/Creatinine Ratio 22.3 H (6-22) Glucose 102 (80-110) mg/dL Lactate 0.7 (0.7-2.1) mmol/L Calcium 9.6 (8.4-10.2) mg/dL Magnesium (1.6-2.3) mg/dL Total Bilirubin 0.3 (0.2-1.3) mg/dL AST 37 H (14-36) IU/L ALT 27 (<35) IU/L Alkaline Phosphatase 68 (38-126) U/L Total Creatine Kinase (30-135) U/L CK-MB (CK-2) CK-MB (CK-2) Rel Index Troponin I (0.01-0.034) ng/mL Total Protein 7.0 (6.3-8.2) g/dL Albumin 4.0 (3.5-5.0) g/dL Globulin 3.0 (1.7-4.1) g/dL Albumin/Globulin Ratio 1.3 (1.0-2.8) Procalcitonin (<0.5) ng/mL Urine Dip Bedside Urine Glucose Negative Bedside Urine Bilirubin - Negative Bedside Urine Ketone - Negative Urine Specific [place] 1.025 Bedside Urine Occult Blood - Negative Bedside Urine pH 5.5 Bedside Urine Protein - Negative Bedside Urine Urobilinogen - Negative Bedside Urine Nitrite - Negative Bedside Urine Leukocytes - Negative Esterase ABG Data Attestation: I personally reviewed and interpreted this ABG as follows: Interpretation: Arterial blood gases reveal a pH is 7.410 pCO2 is 47 PO2 is 75 O2 saturation is 95% Discharge Plan Departure Patient Disposition: Home Clinical Impression: Shortness of Breath, Acute exacerbation of chronic obstructive airways disease Discharge Date/Time: 02/07/20 23:21 Instructions: DI for Chronic Obstructive Pulmonary Disease, DI for Cough -- Adult Activity Restrictions/Additional Instructions: 1. Take your DuoNeb breathing treatments every 4 hours. 2. In between the DuoNeb breathing treatments if you develop cough shortness of breath or wheezing take the albuterol nebulization every 2-4 hours as needed . 3. Take the prednisone as prescribed daily. 4. If you develop worsening chest pain, shortness of breath, wheezing, passing out or dizziness, you need to return to the emergency department to be evaluated. Otherwise follow-up with your primary care physician. 5. Care your lb roll inhaler with you so that you can use it every 2-4 hours as needed when your out in about away from home. 6. Follow-up with your primary care physician and be re-evaluated in 48 to 72 hours. Prescriptions: New prednisone 20 mg tablet 60 mg PO DAILY Qty: 15 RF: 0 ipratropium-albuterol 0.5 mg-3 mg(2.5 mg base)/3 mL solution for nebulization 3 ml INHALATION Q4-6H PRN (Reason: shortness of breath or wheezing) Qty: 90 RF: 1 albuterol sulfate 2.5 mg /3 mL (0.083 %) solution for nebulization 2.5 mg INHALATION Q4H PRN (Reason: shortness of breath or wheezing) Qty: 90 RF: 1 albuterol sulfate 90 mcg/actuation HFA aerosol inhaler 2 puff INHALATION Q4-6H PRN (Reason: shortness of breath or wheezing) Qty: 8.5 RF: 0 No Action donepezil 10 MG tablet 10 mg PO DAILY Qty: 0 RF: 0 Breo Ellipta 100 MCG/25 MCG blister with device 1 puff INH DIRECTED Qty: 0 RF: 0 albuterol sulfate 0.63 mg/3 mL Solution For Nebulization 0.63 mg INHALATION QID RF: 0 acetaminophen 325 mg Tablet 650 mg PO Q4H PRN (Reason: Fever Or Pain) RF: 0 docusate sodium 100 mg Capsule 100 - 200 mg PO BID PRN (Reason: Constipation) RF: 0 Holy Basil 1 dose PO DIRECTED RF: 0 clopidogrel 75 mg Tablet 75 mg PO DAILY RF: 0 aspirin 81 mg Tablet,Delayed Release (Dr/Ec) 81 mg PO DAILY RF: 0 spironolactone 25 mg Tablet 25 mg PO DAILY RF: 0 omeprazole 20 mg Capsule,Delayed Release(Dr/Ec) 20 mg PO DAILY RF: 0 ezetimibe 10 mg Tablet 10 mg PO DAILY RF: 0 rosuvastatin 20 mg Tablet 20 mg PO DAILY RF: 0 PreserVision Lutein 226 mg-200 unit -5 mg-0.8 mg Capsule 1 cap PO DAILY RF: 0 [place]-3 350 mg-235 mg- 90 mg-597 mg Capsule,Delayed Release(Dr/Ec) 1 cap PO DAILY RF: 0 Vitamin D3 1 cap PO DAILY RF: 0 Referrals: Patt Salmon MD [Primary Care Provider] - ED Sign-out Cosign ED Attending Cosignature Attestation: I was immediately available in the department for consultation. This documentation has been reviewed and I agree with assessment and plan. Supervised by Dereck Jean Baptiste MD
[2020-02-07] MEDS: ALBUTEROL/IPRATROPIUM 3 ML AMPUL 6 ML INH (20:55)
[2020-02-07 20:56] VITALS: PULSE 94; RESP 24
[2020-02-07 21:07] LABS: Alanine Aminotransferase 27 IU/L (<35); Albumin Globulin Ratio 1.3 (1.0-2.8); Alkaline Phosphatase 68 U/L (38-126); Aspartate Aminotransferase 37 IU/L (14-36); BUN Creatinine Ratio 22.3 (6-22); Bilirubin Total 0.3 mg/dL (0.2-1.3); Blood Urea Nitrogen 21 mg/dL (7-17); Calcium 9.6 mg/dL (8.4-10.2); Carbon Dioxide 31 mmol/L (22-32); Chloride 99 mmol/L (98-107); Creatine Kinase 76 U/L (30-135); Estimated Glomerular Filt Rate 57.3 mL/min (>60); Glucose 102 mg/dL (80-110); HEMOLYSIS < 15 (0-50); Potassium 4.2 mmol/L (3.4-5.1); Sodium 134 mmol/L (137-145)
[2020-02-07 21:12] LABS: Add Manual Diff / Slide Review NO; Basophils Absolute Auto 100 /uL (0-100); Basophils Percent Auto 1.5 % (0-2); Eosinophils Absolute Auto 500 /uL (0-450); Eosinophils Percent Auto 8.7 % (2-4); Hematocrit 29.4 % (36-46); Hemoglobin 9.6 g/dL (12.0-16.0); Lymphocytes Absolute Auto 900 /uL (1100-4500); Mean Corpuscular HGB Conc 32.7 % (30-36); Mean Corpuscular Hemoglobin 29.3 PG (26-34); Mean Corpuscular Volume 89.4 fL (80-100); Monocytes Absolute Auto 400 /uL (0-900); Monocytes Percent Auto 7.5 % (3-14); Neutrophils Absolute Auto 3500 /uL (1500-7000); Neutrophils Percent Auto 66.3 % (50-75); Platelet Count 278 X10^3/uL (150-400); Red Blood Cell Count 3.29 X10^6/uL (4.0-5.2); Red Cell Distribution Width 17.3 % (11.6-14.8); White Blood Cell Count 5.3 X10^3/uL (4.5-11.0)
[2020-02-07] MEDS: methylPREDNISolone 125 MG/2 ML VIAL IV (21:14)
[2020-02-07] MEDS: SODIUM CHLORIDE 0.9% 1,000 ML 150 ML IV (21:15)
[2020-02-07 21:18] LABS: Troponin I < 0.012 ng/mL (0.01-0.034)
[2020-02-07 21:25] LABS: Procalcitonin < 0.05 ng/mL (<0.5)
[2020-02-07 21:30] VITALS: BP 142/74; PULSE 72; RESP 22; O2SAT 98
[2020-02-07 21:34] LABS: Lactate (Lactic Acid) 0.7 mmol/L (0.7-2.1)
[2020-02-07 21:59] LABS: Fractionated Inspired Oxygen 21; HCO3 ABG 30 mmol/L (22-26); Oxygen Saturation ABG 95 % (95-100); PCO2 ABG 47.4 mmHg (35-45); PO2 ABG 75 mmHg (80-100); TCO2 ABG 31 mmol/L (21-31); pH ABG 7.41 (7.35-7.45)
[2020-02-07 22:00] VITALS: BP 139/77; PULSE 74; RESP 24; O2SAT 97
[2020-02-07 22:30] VITALS: BP 154/90; PULSE 79; RESP 18; O2SAT 96
[2020-02-07 23:19] VITALS: BP 146/76; PULSE 80; RESP 18; O2SAT 97
== END 2020-02-07 23:21 | disposition home or self-care (01) ==
PROVIDERS: Emergency Provider Emergency Medicine; PCP Internal Medicine
DX: R06.02 Shortness of breath (principal); J44.1 Chronic obstructive pulmonary disease with (acute) exacerbation; I50.9 Heart failure, unspecified
CPT/HCPCS: 36415; 36600; 71046; 80053; 81003; 82550; 82805; 83605; 83735; 84145; 84484; 85025; 87040; 93005; 94640; 96361; 96374; 99284; J2930

== ENCOUNTER 2020-05-20 09:13 | Emergency (ER) | payer MEDICARE, OTHER, SELFPAY ==
[2020-05-20] VITALS (8 sets, daily range): BP systolic 126–174; BP diastolic 76–89; PULSE 60–72; RESP 18–36; TEMP 36.3; O2SAT 91–95
--- NOTE | 2020-05-20 09:19 | ED_ITS ---
HPI - Chest Pain General Chief Complaint: Chest Pain Stated Complaint: chest pains,difficulty breathing Time Seen by Provider: 05/20/20 09:18 Source: patient Mode of arrival: Ambulatory Limitations: no limitations History of Present Illness HPI narrative: The patient is a 79-year-old female with history of congestive heart failure presenting with left-sided chest pain. She says she woke up this morning and she has sharp shooting pains on left side of her chest. They last seconds nonradiating. It does seem to be reproducible with palpation but they seem to be quite frequent. It hurts sometimes when she breathes as well. She has never experienced anything like this in the past. She denies any shortness of breath. MD complaint: chest pain Onset (ago): hour(s) Duration: intermittent Onset: during rest Related Data Home Medications Medication Instructions Recorded Confirmed Breo Ellipta 1 puff INH DIRECTED #0 02/15/18 01/19/20 donepezil 10 mg PO DAILY #0 02/15/18 01/19/20 Holy Basil 1 dose PO DIRECTED 01/19/20 01/19/20 Vitamin D3 1 cap PO DAILY 01/19/20 01/19/20 acetaminophen 650 mg PO Q4H PRN 01/19/20 01/19/20 albuterol sulfate 0.63 mg INHALATION QID 01/19/20 01/19/20 aspirin 81 mg PO DAILY 01/19/20 01/19/20 clopidogrel 75 mg PO DAILY 01/19/20 01/19/20 docusate sodium 100 - 200 mg PO BID PRN 01/19/20 01/19/20 ezetimibe 10 mg PO DAILY 01/19/20 01/19/20 omega 3-zih-wez-fish oil [Nordman-3] 1 cap PO DAILY 01/19/20 01/19/20 omeprazole 20 mg PO DAILY 01/19/20 01/19/20 rosuvastatin 20 mg PO DAILY 01/19/20 01/19/20 spironolactone 25 mg PO DAILY 01/19/20 01/19/20 vit C-vit I-vhclzg-xpkp-lutein 1 cap PO DAILY 01/19/20 01/19/20 [PreserVision Lutein] Previous Rx's Medication Instructions Recorded albuterol sulfate 2 puff INHALATION Q4-6H PRN #8.5 02/07/20 gram albuterol sulfate 2.5 mg INHALATION Q4H PRN #90 ml 02/07/20 ipratropium-albuterol 3 ml INHALATION Q4-6H PRN #90 ml 02/07/20 prednisone 60 mg PO DAILY #15 tab 02/07/20 Allergies Allergy/AdvReac Type Severity Reaction Status Date / Time No Known Drug Allergies Allergy Verified 05/20/20 09:27 Review of Systems Review of Systems Narrative: GENERAL: Denies chills, fatigue, malaise, fever, sweats, travel HEENT: Denies sinus pain, ear pain, sore throat, difficulty swallowing, neck pain RESPIRATORY: Denies dyspnea, cough, wheezing, hemoptysis, sputum. CARDIOVASCULAR: See HPI GASTROINTESTINAL: Denies nausea, vomiting, abdominal pain, diarrhea, constipation, melena. : Denies dysuria, frequency, incontinence, hematuria, urinary retention, flank pain. MUSCULOSKELETAL: Denies weakness, joint pain, or bony pain SKIN: No rash, no erythema, no pruritus NEUROLOGIC: Denies weakness, dizziness, headache, numbness, change in speech, confusion PSYCHIATRIC: No concerning psychosocial issues. 12 point review of systems is negative except for those stated above and HPI Patient History Medical History Amaurosis fugax, right eye (Acute) Anemia (Acute) Congestive heart failure (Acute) COPD (chronic obstructive pulmonary disease) (Acute) History of tobacco use (Acute) Surgical History History of carotid endarterectomy (Acute) Social History Smoking Status: Former smoker Smoking Status: Former smoker alcohol intake frequency: 0-2 drinks per day Substance Use Type: does not use Exam Initial Vital Signs Initial Vital Signs: Vital Signs Temperature 97.3 F L 05/20/20 09:27 Pulse Rate 69 05/20/20 09:27 Respiratory Rate 18 05/20/20 09:27 Blood Pressure 174/89 H 05/20/20 09:27 Pulse Oximetry 91 05/20/20 09:27 GENERAL: Alert elderly female appears uncomfortable HEENT: Head atraumatic,EOMI, pupils reactive, face symmetric CARDIOVASCULAR: Regular rate and rhythm without murmurs, rubs or gallops. Pain is reproduced by pushing on left side. RESPIRATORY: Breath sounds equal bilaterally, no wheezes rales or rhonchi. ABDOMEN: Soft, nontender. Normoactive bowel sounds all 4 quadrants. No guarding or rebound. EXTREMITIES: Normal range of motion, no clubbing or edema. Neurovascularly intact NEUROLOGICAL: Alert and oriented x4.Normal gait and speech. SKIN: Warm, dry, no laceration, no petechiae, no rashes or lesions. Course Orders Ordered: ED Orders 05/20/20 09:25 XR chest 1V Stat Complete Blood Count AUTO DIFF Stat Comprehensive Metabolic Panel Stat Lipase Stat NT-proBNP (BNP-Adult 18+) Stat Partial Thromboplastin Time Stat Prothrombin Time INR Stat Troponin & CK Cardiac Panel Stat EKG-12 Lead Stat 05/20/20 11:29 Troponin I Stat Discontinued Medications Nitroglycerin (Nitrostat) 0.4 mg SL NOW ONE Stop: 05/20/20 09:26 Last Admin: 05/20/20 09:32 Dose: 0.4 mg Documented by: ANALY Vital Signs Vital signs: Vital Signs - 8 hr 05/20/20 09:27 05/20/20 09:32 05/20/20 10:00 Temperature 97.3 F L Pulse Rate 69 60 66 Respiratory Rate 18 20 Blood Pressure 174/89 H 130/81 126/80 Pulse Oximetry 91 95 05/20/20 10:45 05/20/20 11:00 05/20/20 11:01 Temperature Pulse Rate 69 72 68 Respiratory Rate 24 29 H 23 Blood Pressure 134/76 Pulse Oximetry 95 94 95 05/20/20 11:30 05/20/20 12:00 Temperature Pulse Rate 68 67 Respiratory Rate 36 H 21 Blood Pressure 140/76 145/80 H Pulse Oximetry 94 94 MDM - Chest Pain Lab Data Attestation: I reviewed the patient's lab results. Result diagrams: 05/20/20 09:25 05/20/20 09:25 Labs: Lab Results 05/20/20 05/20/20 05/20/20 Range/Units 09:25 09:25 09:25 WBC 6.1 (4.5-11.0) X10^3/uL RBC 4.73 (4.0-5.2) X10^6/uL Hgb 13.2 (12.0-16.0) g/dL Hct 39.5 (36-46) % MCV 83.6 (80-100) fL MCH 27.9 (26-34) PG MCHC 33.4 (30-36) % RDW 16.3 H (11.6-14.8) % Plt Count 206 (150-400) X10^3/uL Neut % (Auto) 73.9 (50-75) % Lymph % (Auto) 15.4 L (25-40) % Hitchcock % (Auto) 9.4 (3-14) % Eos % (Auto) 0.7 L (2-4) % Baso % (Auto) 0.6 (0-2) % Neut # (Auto) 4500 (2650-2839) /uL Lymph # (Auto) 900 L (6522-7763) /uL Hitchcock # (Auto) 600 (0-900) /uL Eos # (Auto) 0 (0-450) /uL Baso # (Auto) 0 (0-100) /uL PT 10.2 (10.1-12.7) SECONDS INR 0.9 (0.9-1.3) APTT 28 (26.4-36.2) SECONDS Sodium 136 L (137-145) mmol/L Potassium 4.3 (3.4-5.1) mmol/L Chloride 101 (98-107) mmol/L Carbon Dioxide 31 (22-32) mmol/L BUN 29 H (7-17) mg/dL Creatinine 0.99 (0.52-1.04) mg/dL Estimated GFR 54.0 L (>60) mL/min BUN/Creatinine Ratio 29.3 H (6-22) Glucose 86 (80-110) mg/dL Calcium 9.7 (8.4-10.2) mg/dL Total Bilirubin 0.4 (0.2-1.3) mg/dL AST 49 H (14-36) IU/L ALT 36 H (<35) IU/L Alkaline Phosphatase 57 (38-126) U/L Total Creatine Kinase 505 H (30-135) U/L CK-MB (CK-2) 2.84 H (<2.37) ng/mL CK-MB (CK-2) Rel Index 0.6 L (1.5-5.0) % Troponin I < 0.012 (0.01-0.034) ng/mL NT-Pro-B Natriuret Pep 121 (<450) pg/mL Total Protein 7.1 (6.3-8.2) g/dL Albumin 4.2 (3.5-5.0) g/dL Globulin 2.9 (1.7-4.1) g/dL Albumin/Globulin Ratio 1.4 (1.0-2.8) Lipase 84 (23-300) U/L 05/20/20 Range/Units 11:29 WBC (4.5-11.0) X10^3/uL RBC (4.0-5.2) X10^6/uL Hgb (12.0-16.0) g/dL Hct (36-46) % MCV (80-100) fL MCH (26-34) PG MCHC (30-36) % RDW (11.6-14.8) % Plt Count (150-400) X10^3/uL Neut % (Auto) (50-75) % Lymph % (Auto) (25-40) % Hitchcock % (Auto) (3-14) % Eos % (Auto) (2-4) % Baso % (Auto) (0-2) % Neut # (Auto) (3809-5781) /uL Lymph # (Auto) (9182-1574) /uL Hitchcock # (Auto) (0-900) /uL Eos # (Auto) (0-450) /uL Baso # (Auto) (0-100) /uL PT (10.1-12.7) SECONDS INR (0.9-1.3) APTT (26.4-36.2) SECONDS Sodium (137-145) mmol/L Potassium (3.4-5.1) mmol/L Chloride (98-107) mmol/L Carbon Dioxide (22-32) mmol/L BUN (7-17) mg/dL Creatinine (0.52-1.04) mg/dL Estimated GFR (>60) mL/min BUN/Creatinine Ratio (6-22) Glucose (80-110) mg/dL Calcium (8.4-10.2) mg/dL Total Bilirubin (0.2-1.3) mg/dL AST (14-36) IU/L ALT (<35) IU/L Alkaline Phosphatase (38-126) U/L Total Creatine Kinase (30-135) U/L CK-MB (CK-2) (<2.37) ng/mL CK-MB (CK-2) Rel Index (1.5-5.0) % Troponin I < 0.012 (0.01-0.034) ng/mL NT-Pro-B Natriuret Pep (<450) pg/mL Total Protein (6.3-8.2) g/dL Albumin (3.5-5.0) g/dL Globulin (1.7-4.1) g/dL Albumin/Globulin Ratio (1.0-2.8) Lipase (23-300) U/L Imaging Data Chest x-ray: Radiologist's Impression: PROCEDURE: XR CHEST 1V INDICATIONS: chest pain TECHNIQUE: One view of the chest was acquired. COMPARISON: [facility], , XR CHEST 2V, 02/07/2020, 20:48. FINDINGS: Surgical changes and devices: Surgical clips overlying the right lung apex are noted. There is a vascular stent overlying the right neck which appears to be kinked but is not adequately evaluated on this exam. Lungs and pleura: Calcified granulomas along the lateral margin of the right mid lung is unchanged. No focal consolidation, effusion, or pneumothorax is identified. Mediastinum: Mediastinal contours appear normal. Heart size is normal. There is aortic atherosclerosis. Bones and chest wall: No suspicious bony lesions. Overlying soft tissues appear unremarkable. IMPRESSION: No acute cardiopulmonary process is evident. Dictated by: Miguel Olivares M.D. on 05/20/2020 at 8:54 ECG Data Attestation: I personally reviewed and interpreted this ECG as follows: Prior ECG tracings: available for review Interpretation: Normal sinus rhythm rate [address] elevation or depression p.r. interval 148 QRS 116 QTC 423 MDM Narrative Medical decision making narrative: The patient's pain is reproducible seems to be in 1 particular area. It is not consistent with cardiac pain. She has 2- troponins. At this time I feel that she is safe to go home with outpatient fo llow-up. I discussed all findings with the patient, Education has been performed regarding treatment plan, diagnosis, warning signs and symptoms and all concerns have been addressed. Verbally agree with and understood all of the above. Discharge Plan Departure Patient Disposition: Home Clinical Impression: Atypical chest pain Discharge Date/Time: 05/20/20 12:26 Instructions: Costochondritis, DI for Atypical Chest Pain Activity Restrictions/Additional Instructions: *You have been diagnosed with atypical chest pain *What to do: At this time recommend that you follow-up with her primary care provider for further testing such as a stress test and echocardiogram. Blood work EKG are reassuring today *Continue to take medications as directed *Follow up with your primary care provider in 2-3 days *Return to ER if you should have worsening chest pain, shortness of breath, dizziness, weakness or any new, worsening or concerning symptoms Prescriptions: No Action donepezil 10 MG tablet 10 mg PO DAILY Qty: 0 RF: 0 Breo Ellipta 100 MCG/25 MCG blister with device 1 puff INH DIRECTED Qty: 0 RF: 0 albuterol sulfate 0.63 mg/3 mL Solution For Nebulization 0.63 mg INHALATION QID RF: 0 acetaminophen 325 mg Tablet 650 mg PO Q4H PRN (Reason: Fever Or Pain) RF: 0 docusate sodium 100 mg Capsule 100 - 200 mg PO BID PRN (Reason: Constipation) RF: 0 Holy Basil 1 dose PO DIRECTED RF: 0 clopidogrel 75 mg Tablet 75 mg PO DAILY RF: 0 aspirin 81 mg Tablet,Delayed Release (Dr/Ec) 81 mg PO DAILY RF: 0 spironolactone 25 mg Tablet 25 mg PO DAILY RF: 0 omeprazole 20 mg Capsule,Delayed Release(Dr/Ec) 20 mg PO DAILY RF: 0 ezetimibe 10 mg Tablet 10 mg PO DAILY RF: 0 rosuvastatin 20 mg Tablet 20 mg PO DAILY RF: 0 PreserVision Lutein 226 mg-200 unit -5 mg-0.8 mg Capsule 1 cap PO DAILY RF: 0 Nordman-3 350 mg-235 mg- 90 mg-597 mg Capsule,Delayed Release(Dr/Ec) 1 cap PO DAILY RF: 0 Vitamin D3 1 cap PO DAILY RF: 0 prednisone 20 mg tablet 60 mg PO DAILY Qty: 15 RF: 0 ipratropium-albuterol 0.5 mg-3 mg(2.5 mg base)/3 mL solution for nebulization 3 ml INHALATION Q4-6H PRN (Reason: shortness of breath or wheezing) Qty: 90 RF: 1 albuterol sulfate 2.5 mg /3 mL (0.083 %) solution for nebulization 2.5 mg INHALATION Q4H PRN (Reason: shortness of breath or wheezing) Qty: 90 RF: 1 albuterol sulfate 90 mcg/actuation HFA aerosol inhaler 2 puff INHALATION Q4-6H PRN (Reason: shortness of breath or wheezing) Qty: 8.5 RF: 0 Referrals: Patt Salmon MD [Primary Care Provider] -
--- NOTE | 2020-05-20 09:25 | DI.RAD.S_ITS ---
PROCEDURE: XR CHEST 1V INDICATIONS: chest pain TECHNIQUE: One view of the chest was acquired. COMPARISON: [facility], CR, XR CHEST 2V, 02/07/2020, 20:48. FINDINGS: Surgical changes and devices: Surgical clips overlying the right lung apex are noted. There is a vascular stent overlying the right neck which appears to be kinked but is not adequately evaluated on this exam. Lungs and pleura: Calcified granulomas along the lateral margin of the right mid lung is unchanged. No focal consolidation, effusion, or pneumothorax is identified. Mediastinum: Mediastinal contours appear normal. Heart size is normal. There is aortic atherosclerosis. Bones and chest wall: No suspicious bony lesions. Overlying soft tissues appear unremarkable. IMPRESSION: No acute cardiopulmonary process is evident. Dictated by: Miguel Olivares M.D. on 05/20/2020 at 8:54 Approved by: Miguel Olivares M.D. on 05/20/2020 at 8:55
[2020-05-20] MEDS: NITROGLYCERIN 0.4 MG SL TAB SL (09:32)
[2020-05-20 09:41] LABS: INR 0.9 (0.9-1.3); Prothrombin Time 10.2 SECONDS (10.1-12.7)
[2020-05-20 09:42] LABS: Add Manual Diff / Slide Review NO; Basophils Absolute Auto 0 /uL (0-100); Basophils Percent Auto 0.6 % (0-2); Eosinophils Absolute Auto 0 /uL (0-450); Eosinophils Percent Auto 0.7 % (2-4); Hematocrit 39.5 % (36-46); Hemoglobin 13.2 g/dL (12.0-16.0); Lymphocytes Absolute Auto 900 /uL (1100-4500); Lymphocytes Percent Auto 15.4 % (25-40); Mean Corpuscular HGB Conc 33.4 % (30-36); Mean Corpuscular Hemoglobin 27.9 PG (26-34); Mean Corpuscular Volume 83.6 fL (80-100); Monocytes Absolute Auto 600 /uL (0-900); Monocytes Percent Auto 9.4 % (3-14); Neutrophils Absolute Auto 4500 /uL (1500-7000); Neutrophils Percent Auto 73.9 % (50-75); Platelet Count 206 X10^3/uL (150-400); Red Blood Cell Count 4.73 X10^6/uL (4.0-5.2); Red Cell Distribution Width 16.3 % (11.6-14.8); White Blood Cell Count 6.1 X10^3/uL (4.5-11.0)
[2020-05-20 09:44] LABS: PTT Partial Thromboplastin Tim 28 SECONDS (26.4-36.2)
[2020-05-20 09:45] LABS: Alanine Aminotransferase 36 IU/L (<35); Albumin 4.2 g/dL (3.5-5.0); Albumin Globulin Ratio 1.4 (1.0-2.8); Alkaline Phosphatase 57 U/L (38-126); Aspartate Aminotransferase 49 IU/L (14-36); BUN Creatinine Ratio 29.3 (6-22); Bilirubin Total 0.4 mg/dL (0.2-1.3); Blood Urea Nitrogen 29 mg/dL (7-17); Calcium 9.7 mg/dL (8.4-10.2); Carbon Dioxide 31 mmol/L (22-32); Chloride 101 mmol/L (98-107); Creatine Kinase 505 U/L (30-135); Globulin 2.9 g/dL (1.7-4.1); Glucose 86 mg/dL (80-110); Lipase 84 U/L (23-300); Potassium 4.3 mmol/L (3.4-5.1); Sodium 136 mmol/L (137-145); Total Protein 7.1 g/dL (6.3-8.2)
[2020-05-20 09:57] LABS: NT-proBNP (BNP-Adult 18+) 121 pg/mL (<450); Troponin I < 0.012 ng/mL (0.01-0.034)
[2020-05-20 10:01] LABS: CKMB % Relative Index 0.6 % (1.5-5.0); Creatine Kinase MB 2.84 ng/mL (<2.37); HEMOLYSIS 20 (0-50)
[2020-05-20 12:03] LABS: Troponin I < 0.012 ng/mL (0.01-0.034)
== END 2020-05-20 12:26 | disposition home or self-care (01) ==
PROVIDERS: Emergency Provider Emergency Medicine; PCP Internal Medicine
DX: R07.89 Other chest pain (principal)
CPT/HCPCS: 36415; 71045; 80053; 82550; 82553; 83690; 83880; 84484; 85025; 85610; 85730; 93005; 99284

== ENCOUNTER → 2021-07-23 12:26 | Outpatient (CLI) | payer MEDICARE, OTHER, SELFPAY ==
--- NOTE | 2021-07-23 12:28 | DI.MRI.S_ITS ---
PROCEDURE: MR LUMBAR SPINE WO CON INDICATIONS: Low back pain TECHNIQUE: Noncontrast sagittal T1 spin echo and T2 fast echo, sagittal STIR, axial T1 and T2 fast spin echo through the lumbar spine. In cases with scoliosis, additional coronal T2 fast spin echo may be performed. COMPARISON: None. FINDINGS: Image quality: Excellent. Alignment and Curvature: There is normal bony alignment. Bone Marrow: Marrow is of normal overall signal. No acute vertebral body compression fractures. Spinal Cord: Conus medullaris terminates at the L1 level. Visualized cord demonstrates normal signal and size. Paraspinous Soft Tissues: No paravertebral masses. T12-L1: Normal appearance. L1-L2: Normal appearance. L2-L3: The disc height is well-preserved. Loss of disc signal is seen at this level. Mild disc bulge is seen, which is eccentric to the right. Mild facet joint hypertrophy is seen. No significant neural foraminal or central canal narrowing can be seen. L3-L4: The disc height is well-preserved. Loss of disc signal is seen at this level. Mild to moderate disc bulge is seen, which is eccentric to the right. Mild to moderate facet hypertrophy can be seen. There is [id number] right-sided and mild left-sided neural foraminal narrowing seen. Minimal central canal narrowing is seen. L4-L5: The disc height is well-preserved. Loss of disc signal is seen at this level. Moderate generalized disc bulge is seen. Moderate facet joint hypertrophy is seen. Moderate bilateral neural foraminal narrowing is seen. Mild to moderate central canal narrowing is seen. L5-S1: At least moderate loss of disc height and disc signal can be seen. Moderate disc bulge is seen, which is eccentric to the right. Mild to moderate facet hypertrophy is seen. There is moderate to severe bilateral neural foraminal narrowing seen, with associated mild compression upon the exiting L5 nerve roots. Mild central canal narrowing is seen. 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 IMPRESSION: Focal L5-S1 degenerative change is seen, with associated mild compression upon the exiting L5 nerve roots. Dictated by: Seth Henson M.D. on 07/26/2021 at 10:37 Approved by: Seth Henson M.D. on 07/26/2021 at 10:40
== END ==
PROVIDERS: PCP Internal Medicine; Referring Provider Internal Medicine; Visit Provider Internal Medicine
DX: M54.5 Low back pain (principal); M54.30 Sciatica, unspecified side; M47.817 Spondylosis without myelopathy or radiculopathy, lumbosacral region
CPT/HCPCS: 72148

== ENCOUNTER → 2021-11-28 13:01 | Outpatient (CLI) | payer MEDICARE, OTHER, SELFPAY ==
--- NOTE | 2021-11-28 13:03 | DI.RAD.S_ITS ---
PROCEDURE: XR LUMBAR SPINE MIN 4V INDICATIONS: BACK PAIN TECHNIQUE: 5 views of the lumbar spine were acquired, including bilateral oblique views. COMPARISON: None. FINDINGS: Bones: 5 nonrib-bearing vertebrae are present. There is normal bony alignment. No vertebral body compression fractures. No suspicious bony lesions. Multilevel disc space narrowing and endplate osteophyte formation. Facet hypertrophy throughout the mid and lower lumbar spine. Lower lumbar pars interarticularis are not well seen. Soft tissues: Overlying bowel gas pattern is normal. No suspicious soft tissue calcifications. IMPRESSION: 1. Multilevel degenerative disc and facet disease. 2. No acute fracture. No osseous lesion. If symptoms and/or clinical suspicion for pathology persist, further assessment with repeat, or advanced imaging (e.g., CT, MRI, or bone scan) may be helpful for further assessment. Dictated by: Emily Block M.D. on 11/28/2021 at 15:10 Approved by: Emily Block M.D. on 11/28/2021 at 15:11
== END ==
PROVIDERS: PCP Internal Medicine; Referring Provider Physical Medicine & Rehabilitation; Visit Provider Physical Medicine & Rehabilitation
DX: M51.36 Other intervertebral disc degeneration, lumbar region (principal); M54.9 Dorsalgia, unspecified; M54.17 Radiculopathy, lumbosacral region; M47.816 Spondylosis without myelopathy or radiculopathy, lumbar region; Z68.22 Body mass index [BMI] 22.0-22.9, adult
CPT/HCPCS: 72110; 99214

== ENCOUNTER → 2021-12-05 10:57 | Outpatient (CLI) | payer MEDICARE, OTHER, SELFPAY ==
[2021-12-05 13:38] LABS: COVID19 -Nasal RAPID POSITIVE (Negative)
== END ==
PROVIDERS: PCP Internal Medicine; Visit Provider Physical Medicine & Rehabilitation
DX: U07.1 COVID-19; Z20.822 Contact with and (suspected) exposure to COVID-19
CPT/HCPCS: 87635; C9803

== ENCOUNTER → 2022-01-09 13:24 | Outpatient (CLI) | payer MEDICARE, OTHER, SELFPAY ==
[2022-01-09 14:38] LABS: COVID19 -Nasal RAPID Negative (Negative)
== END ==
PROVIDERS: PCP Internal Medicine; Visit Provider Physical Medicine & Rehabilitation
DX: Z20.822 Contact with and (suspected) exposure to COVID-19 (principal)
CPT/HCPCS: 87635; C9803

== ENCOUNTER 2022-01-10 14:03 | Outpatient (CLI) | payer MEDICARE, OTHER, SELFPAY ==
[2022-01-10] VITALS (8 sets, daily range): BP systolic 114–183; BP diastolic 69–89; PULSE 66–72; RESP 15–21; TEMP 36.9; O2SAT 96–100
--- NOTE | 2022-01-10 14:10 | DI.RAD.S_ITS ---
PROCEDURE: PAIN L INTERLAMINAR/CAUDAL INJ INDICATIONS: SPONDYLOSIS COMPARISON: [facility], CR, XR LUMBAR SPINE MIN 4V, 11/28/2021, 12:55. [facility], MR, MR LUMBAR SPINE WO CON, 07/23/2021, 13:01. FINDINGS: Fluoroscopic spot filming was performed to verify placement of a spinal needle at the L5-S1 level, as labeled on the films. Appropriate location of the needle tip was confirmed by injection of iodinated contrast. IMPRESSION: No significant intraprocedural abnormality. Dictated by: Seth Henson M.D. on 01/10/2022 at 15:25 Approved by: Seth Henson M.D. on 01/10/2022 at 15:25
[2022-01-10] MEDS: MIDAZOLAM 5 MG/5 ML VIAL IV (15:16)
[2022-01-10] MEDS: fentaNYL 250 MCG/5 ML INJ 50 MCG IV (15:16)
[2022-01-10] MEDS: BETAMETHASONE 30 MG/5 ML MDV 6 MG INJ (15:21)
[2022-01-10] MEDS: IOPAMIDOL 15 ML VIAL 3 ML INJ (15:21)
[2022-01-10] MEDS: DEXAMETHASONE 10 MG/ML VIAL 20 MG INJ (15:22)
[2022-01-10] MEDS: LIDOCAINE 2% INJ MDV 20 ML INJ (15:23)
--- NOTE | 2022-01-10 15:34 | PM.PROC.IR.1 ---
Date/Time/Diagnoses Date of procedure: 01/10/22 Time of procedure: 15:34 Pre-procedure diagnosis: 1. HNP WITH RADICULAR FEATURES, 2. MULTILEVEL CENTRAL STENOSIS, Post-procedure diagnosis: same Procedure Notes Procedure: 1. FLUOROSCOPICALLY GUIDED CONTRAST CONTROLLED INTERLAMINAR EPIDURAL STEROID INJECTION - L5/S1 Indications: Lucas Saleh is referred by Dr. Salmon for treatment of Bilateral Foraminal Stenosis L>R LE symptoms. Physician: Martín Rodgers Total Fluoroscopy time (seconds): 7 Total sedation minutes: 9 Complications: none Procedure in detail & Post-procedure care: FINDINGS Multilevel Central Spinal Stenosis with Nerve Root Compression DESCRIPTION OF PROCEDURE Fluoroscopically guided, contrast-controlled L5/S1 translaminar epidural steroid injection. Following review of allergy and review of potential side effects and complications, including, but not necessarily limited to, infection, allergic reaction, local tissue breakdown, temporary as well as permanent nerve injury, paralysis, stroke and possible , the patient indicated that the patient understood and agreed to proceed. An informed consent document was signed by the patient, witnessed by a nurse, and placed in the patient's chart. Additionally, other treatment options including modalities, medications, and physical therapy were reviewed with the patient. After review of previous anaesthesic history and IV conscious sedation the patient was deemed safe to proceed with today?s procedure with IV conscious sedation as ASA class II designation. Safety time-out was performed to confirm patient ID, procedure to be performed and site of procedure. IV sedation was accomplished with a combination of 2mg of Versed and 50mcg of Fentanyl administered by the RN after DO order, titrated to patient comfort during the course of the procedure while the patient remained responsive to all verbal commands. In the prone position, following sterile prep and drape of the lumbar region, the L5/S1 translaminar space was identified fluoroscopically. The skin was anesthetized via a 25-gauge, 1.5-inch needle with 1% lidocaine solution. At this point, a 22-gauge short bevel spinal needle was atraumatically introduced and advanced under fluoroscopic guidance into the region of the L5/S1 translaminar space. Depth was confirmed on lateral view. Radiological data, including multiple fluoroscopic views of the lumbar spine, reveal a spinal needle at the L5/S1 translaminar space. Lateral views then show placement of the needle in the epidural space. Subsequent views show contrast material flowing superiorly and inferiorly in the epidural space. No vascular or intrathecal uptake is observed. At this point, using loss of resistance technique with saline and air, the epidural space was entered. This was confirmed following negative aspiration with injection of approximately 1.5cc of Isovue 200, showing excellent epidural flow without vascular or intrathecal uptake. At this point, 1 cc of 1% lidocaine solution combined with 3cc or 20mg of dexamethasone and 6mg of betamethasone was injected without incident. The patent tolerated the procedure without signs of symptoms of complications prior to transfer to the recovery area for further monitoring. The patient was then transferred to the recovery area where they were observed for an appropriate period of time after the injection. The patient reported a VAS score of 6 prior to the procedure and a post-procedure VAS of 0. POST OP INSTRUCTIONS The patient was provided a Pain Log to continue to record their response to the target-specific procedure prior to follow-up visit with their referring physician. Additionally, specific post-injection care instructions and a contact number to our office were provided if concerns arise regarding possible complications associated with the procedure are suspected.
== END 2022-01-10 15:50 | disposition home or self-care (01) ==
LOC: RAD 14:07
PROVIDERS: PCP Internal Medicine; Referring Provider Physical Medicine & Rehabilitation; Visit Provider Physical Medicine & Rehabilitation
DX: M51.17 Intervertebral disc disorders with radiculopathy, lumbosacral region (principal); M48.07 Spinal stenosis, lumbosacral region
CPT/HCPCS: 62323; J0702; J1100; J2250; J3010

== ENCOUNTER 2022-01-29 10:28 | Emergency (ER) | payer MEDICARE, OTHER, SELFPAY ==
[2022-01-29 10:30] VITALS: BP 110/68; PULSE 77; RESP 18; TEMP 37.1; O2SAT 95; BMI 20.9
[2022-01-29] MEDS: OXYCODONE IR 5 MG TABLET PO (13:00)
--- NOTE | 2022-01-29 13:27 | ED_ITS ---
HPI - Back Pain/Injury <Hermann Yang PA-C - Last Filed: 01/29/22 19:42> General Chief Complaint: Back Pain/Injury Stated Complaint: back pain Time Seen by Provider: 01/29/22 10:40 Source: patient and EMS History of Present Illness HPI Narrative: Patient is an 81-year-old female presenting to the emergency department today for evaluation back pain. Patient states she has been experiencing chronic back pain for the past 2-3 years and states that she has had difficulty moving around her house due to the pain. She explains that she had a steroid injection performed on 01/10/2022 and explains that the pain in her lower back increased on 01/27/2022. Her who is at bedside expresses concern for her mobility and states that he has to watch her ?11/06. He is concerned that if she does not get assistance at home she may experience a fall and more serious injury. No fevers, chills, chest pain, cough, shortness of breath, nausea, vomiting, diarrhea, constipation, abdominal pain, dysuria, hematuria, urinary incontinence, fecal incontinence, numbness and tingling lower extremities, or any other concerning symptoms reported. No further concerns were voiced at this time. Related Data Home Medications Medication Instructions Recorded Confirmed Vitamin D3 1 cap PO DAILY 01/19/20 11/28/21 acetaminophen 325 mg tablet 650 mg PO Q4H PRN 01/19/20 11/28/21 aspirin 81 mg tablet,delayed 81 mg PO DAILY 01/19/20 11/28/21 release ezetimibe 10 mg tablet 10 mg PO DAILY 01/19/20 11/28/21 rosuvastatin 20 mg tablet 20 mg PO DAILY 01/19/20 11/28/21 spironolactone 25 mg tablet 25 mg PO DAILY 01/19/20 11/28/21 vit C-vit H-vqnibt-pznj ox-lutein 1 cap PO DAILY 01/19/20 11/28/21 226 mg-200 unit-5 mg-0.8 mg capsule (PreserVision Lutein) alendronate 70 mg tablet 70 mg PO QWEEK 11/28/21 11/28/21 vxnqfagizem-hanwqqfwb-rbwfwmsq INHALATION 11/28/21 11/28/21 [Trelegy Ellipta] torsemide 10 mg tablet 10 mg PO DAILY 11/28/21 11/28/21 Previous Rx's Medication Instructions Recorded docusate sodium 100 mg capsule 100 mg PO DAILY #20 cap 01/29/22 (Colace) oxycodone 5 mg tablet 5 mg PO BID PRN #10 tab 01/29/22 sennosides 8.6 mg capsule (senna) 8.6 mg PO DAILY PRN #20 cap 01/29/22 diazepam 10 mg tablet (Valium) 10 mg PO .COMPLEX PRN #10 tab MDD 02/01/22 3 tabs tramadol 50 mg tablet 50 mg PO TID PRN #30 tab 02/01/22 Allergies Allergy/AdvReac Type Severity Reaction Status Date / Time gabapentin AdvReac Intermediate Verified 02/01/22 14:19 Review of Systems <Hermann Yang PA-C - Last Filed: 01/29/22 19:42> Constitutional Constitutional: Denies chills, Denies fatigue, Denies fever(s), Denies frequent falls, Denies lethargy and Denies weakness Eyes Eyes: Denies loss of vision ENT Ears, Nose, Mouth, and Throat: Denies dizziness and Denies neck pain Cardiovascular Cardiovascular: Denies chest pain, Denies irregular heart rhythm, Denies lightheadedness, Denies palpitations, Denies dyspnea, Denies dyspnea on exertion and Denies orthopnea Respiratory Respiratory: Denies cough, Denies dyspnea, Denies dyspnea on exertion and Denies wheezing Gastrointestinal Gastrointestinal: Denies abdominal pain, Denies change in bowel habits, Denies diarrhea, Denies nausea and Denies vomiting Genitourinary Genitourinary: Denies hematuria, Denies flank pain, Denies urinary incontinence and Denies urinary urgency Musculoskeletal Musculoskeletal: Reports back pain, Denies muscle weakness, Denies neck pain, Denies numbness and Denies tingling Integumentary/Breasts Skin/Breast: Denies pruritus, Denies erythema, Denies rash and Denies wounds Neurologic Neurologic: Denies behavioral changes, Denies confusion, Denies dizziness, Denies frequent falls, Denies loss of vision, Denies numbness, Denies tingling and Denies weakness Psychiatric Psychiatric: Denies behavioral changes and Denies confusion Endocrine Endocrine: Denies fatigue and Denies palpitations Allergic/Immunologic Allergic/Immunologic: Denies wheezing Patient History <Hermann Yang PA-C - Last Filed: 01/29/22 19:42> Medical History Amaurosis fugax, right eye Anemia Congestive heart failure COPD (chronic obstructive pulmonary disease) Facet arthropathy, lumbar History of tobacco use Lumbosacral radiculopathy at L5 Surgical History History of carotid endarterectomy Social History Smoking Status: Former smoker Smoking Status: Former smoker alcohol intake frequency: 0-2 drinks per day Substance Use Type: does not use Exam <Hermann Yang PA-C - Last Filed: 01/29/22 19:42> Narrative Exam Narrative: GENERAL: 81 year old patient appears stated age. Well-developed patient, in no acute distress. HEAD: Atraumatic. Normocephalic. EYES: Pupils equal round and reactive. Extraocular motions intact. No scleral icterus. No injection or drainage. ENT: Nose without bleeding, purulent drainage. Throat without erythema, tonsillar hypertrophy or exudate. Airway patent. NECK: Trachea midline. Non tender CARDIOVASCULAR: Regular rate and rhythm without murmurs, gallops, or rubs. RESPIRATORY: Clear to auscultation. Breath sounds equal bilaterally. No wheezes, rales, or rhonchi. GASTROINTESTINAL: Abdomen soft, non-tender, nondistended. EXTREMITIES: No edema or joint tenderness. BACK: Nontender without deformity or crepitance. No flank tenderness. Patient points to the sacrum when asked to identify the area of with significant tenderness. No significant tenderness over the lumbar paraspinal muscles bilaterally. NEURO: AOx3. Good sensation to light touch appreciated throughout the bilateral lower extremities. Gross motor function intact throughout the bilateral lower extremities. SKIN: No rash or erythema of visible areas Initial Vital Signs Initial Vital Signs: Vital Signs Temperature 98.7 F 01/29/22 10:30 Pulse Rate 77 01/29/22 10:30 Respiratory Rate 18 01/29/22 10:30 Blood Pressure 110/68 01/29/22 10:30 Pulse Oximetry 95 01/29/22 10:30 Course <Hermann Yang PA-C - Last Filed: 01/29/22 19:42> Course Course Narrative: 5 mg oxycodone administered, social work and physical therapy consult requested. Orders Ordered: Discontinued Medications Oxycodone HCl (Oxycodone Ir 5 Mg Tablet) 5 mg PO NOW ONE Stop: 01/29/22 12:20 Last Admin: 01/29/22 13:00 Dose: 5 mg Documented by: JANIE Vital Signs Vital signs: Vital Signs - 8 hr 01/29/22 14:06 Pulse Rate 69 Respiratory Rate 18 Blood Pressure 176/70 H Pulse Oximetry 99 MDM - Back Pain/Injury <Hermann Yang PA-C - Last Filed: 01/29/22 19:42> MDM Narrative Medical decision making narrative: Differential diagnosis to consider but not limited to acute on chronic back pain versus musculoskeletal low back pain versus disc herniation versus disc protrusion versus cauda equinus syndrome. Overall physical examination is reassuring. Discussed plan with patient to prescribed for course of pain medications and medications to help alleviate her constipation. Patient expresses understanding and agrees plan. If from the patient will be writing her prescription for durable medical equipment bedside commode. Patient states at this time she is comfortable being discharged home is stable for discharge. Strict return precautions were discussed with the patient prior to discharge. Discharge Plan Departure Patient Disposition: Home Clinical Impression: Chronic back pain Qualifiers: Back pain location: low back pain Back pain laterality: bilateral Sciatica presence: without sciatica Qualified Code(s): M54.50 - Low back pain, unspecified Instructions: DI for Low Back Pain Activity Restrictions/Additional Instructions: *You have been diagnosed with chronic back pain *What to do: *Please continue to take your regular medications as directed. [X] New medication prescriptions sent to your pharmacy: [facility] [X] New medication written as a paper prescription: Oxycodone [ ] No new medications given You were evaluated in the emergency department today for low back pain. I have prescribed you a short course of pain medications to help alleviate her discomfort. Additionally, her prescribed do a course of medications to help a lleviate your constipation. A paper prescription was provided for durable medical equipment for a bedside commode. Please follow-up with the primary care provider within the next 2-3 days for further evaluation and management of your symptoms. Do not hesitate to return to the emergency department if you experience worsening pain, loss of bowel or bladder control, numbness and tingling in the inner thighs, fever, or any other concerning symptoms. *Please follow up with your primary care provider in 2-3 days, call for an appointment. Let them know you were seen in the Emergency Department and that we ask that you be seen in follow up. We will electronically transmit a record of today's note if your PCP is in our system *If you do not have a primary care provider please contact the [facility] Resource line at [phone]. They will ask some questions about your medical history and help get you set up with a doctor in the community. *Return to Emergency Department if you should have any new, worsening or concerning symptoms, such as fever greater than 101 F, shaking chills, worsening pain, persistent vomiting or other bothersome symptoms. Prescriptions: New oxycodone 5 mg tablet 5 mg PO BID PRN (Reason: pain) Qty: 10 0RF docusate sodium [Colace] 100 mg capsule 100 mg PO DAILY Qty: 20 0RF senna 8.6 mg capsule 8.6 mg PO DAILY PRN (Reason: constipation) Qty: 20 0RF No Action acetaminophen 325 mg Tablet 650 mg PO Q4H PRN (Reason: Fever Or Pain) 0RF aspirin 81 mg Tablet,Delayed Release (Dr/Ec) 81 mg PO DAILY 0RF spironolactone 25 mg Tablet 25 mg PO DAILY 0RF ezetimibe 10 mg Tablet 10 mg PO DAILY 0RF rosuvastatin 20 mg Tablet 20 mg PO DAILY 0RF PreserVision Lutein 226 mg-200 unit -5 mg-0.8 mg Capsule 1 cap PO DAILY 0RF Vitamin D3 1 cap PO DAILY 0RF torsemide 10 mg tablet 10 mg PO DAILY 0RF alendronate 70 mg tablet 70 mg PO QWEEK 0RF uqhbcqtyscx-tfbmjtrel-mqmjtvoc [Trelegy Ellipta] inhalation 0RF tramadol 50 mg tablet 50 mg PO TID PRN (Reason: pain) Qty: 30 1RF diazepam [Valium] 10 mg tablet 10 mg PO .COMPLEX MDD 3 tabs PRN (Reason: 1-2 prior to MRI and for possible steroid flare) Qty: 10 0RF Rx Instructions: 10 mg PO PRN; Referrals: Patt Salmon MD [Primary Care Provider] -
--- NOTE | 2022-01-29 13:45 | CM.SWNOTE ---
ED Social Work Note: dope maintenance worker met with patient and patient's spouse at bedside. Patient has ongoing back pain that was controlled by injection but is not currently; pending next injection appt 03/01. Pt and spouse have call in to doctor to attempt to move that appt up. Pt's spouse reporting current prescribed Gabapentin is making patient loopy and causing motor skill concerns to where spouse indicates he feels he is having to assist pt to bathroom or around their home; patient denies this is accurate. Spouse reported current medications are making patient not remember things or when pt is attempting to put an item on the table she will think she did already and let go of the item and then the item drops. Plan to discuss this with prescribing doctor is also discussed. Pt's spouse requesting BSC and in-home caregiver/assistance. Pt spouse also states the pain will sometimes just go away on its own and then return with no seeming explanation. Pt and spouse did not want to wait for PT eval to evaluate need for HH assistance. Pt's spouse reported he has friends who gave him contact to arrange for PP caregiver/assistance in home. Spouse requesting pain medication for patient. Pt's spouse reporting constipation concerns she hasn't gone in two days. Spouse reports patient is typically a daily eliminator right after her morning coffee. Pt requesting to discharge home to follow up with her physician as pt is reporting the pain is adequately managed with medication provided in ED setting. Provider notified of pt's request for constipation medication as well as the pain medication and script for BSC. Sumanth LIN
[2022-01-29 14:06] VITALS: BP 176/70; PULSE 69; RESP 18; O2SAT 99
== END 2022-01-29 14:07 | disposition home or self-care (01) ==
PROVIDERS: Emergency Provider Physician Assistant; PCP Internal Medicine
DX: G89.29 Other chronic pain (principal); M54.9 Dorsalgia, unspecified
CPT/HCPCS: 99283

== ENCOUNTER → 2022-02-06 10:52 | Outpatient (CLI) | payer MEDICARE, OTHER, SELFPAY ==
[2022-02-06 13:24] LABS: COVID19 -Nasal RAPID Negative (Negative)
== END ==
PROVIDERS: PCP Internal Medicine; Visit Provider Physical Medicine & Rehabilitation
DX: Z20.822 Contact with and (suspected) exposure to COVID-19 (principal)
CPT/HCPCS: 87635; C9803

== ENCOUNTER 2022-02-07 14:17 | Outpatient (CLI) | payer MEDICARE, OTHER, SELFPAY ==
[2022-02-07] VITALS (8 sets, daily range): BP systolic 101–176; BP diastolic 59–94; PULSE 58–71; RESP 16–22; TEMP 36.9; O2SAT 99–100
--- NOTE | 2022-02-07 14:20 | DI.RAD.S_ITS ---
PROCEDURE: PAIN L/S FACET INJ/BLK 1ST FIONA COMPARISON: None. INDICATIONS: SPONDYLOSIS FINDINGS: Single intraoperative fluoroscopic image of lower lumbar spine shows injection needles placed over right side of L4 through S1 levels. IMPRESSION: Fluoro guidance was provided intraoperatively for bilateral L4 through S1 medial branch block performed by the ordering physician. Dictated by: Bill Alfaro M.D. on 02/07/2022 at 16:01 Approved by: Bill Alfaro M.D. on 02/07/2022 at 16:01
[2022-02-07] MEDS: MIDAZOLAM 2 MG/2 ML VIAL IV (15:21)
[2022-02-07] MEDS: fentaNYL 100 MCG/2 ML INJ IV (15:23)
[2022-02-07] MEDS: IOPAMIDOL 15 ML VIAL 3 ML INJ (15:24)
[2022-02-07] MEDS: LIDOCAINE 1% 20 ML INJ (15:26)
[2022-02-07] MEDS: BUPIVACAINE 0.5% (PF) VIAL 5 ML INJ (15:26)
--- NOTE | 2022-02-07 15:38 | P.PCN_ITS ---
Date/Time/Diagnoses Date of procedure: 02/07/22 Time of procedure: 15:38 Pre-procedure diagnosis: 1. FACET ARTHROPATHY Post-procedure diagnosis: same Procedure Notes Procedure: 1. BILATERAL- L4, L5 and S1 DIAGNOSTIC MB BLOCKS with LA Anesthetic Indications: Lucas Saleh is referred by Dr. Salmon for treatment of Bilateral Axial LBP. Physician: Martín Rodgers Total Fluoroscopy time (seconds): 14 Total sedation minutes: 18 Complications: none Procedure in detail & Post-procedure care: DESCRIPTION OF PROCEDURE Fluoroscopically guided, contrast-controlled bilateral L4, L5 and S1 medial branch blocks with 0.5cc of 0.5% Marcaine. Following review of allergy and review of potential side effects and complications, including, but not necessarily limited to, infection, allergic reaction, local tissue breakdown, nerve injury, paralysis, stroke and possible , the patient indicated that the patient understood and agreed to proceed. An informed consent document was signed by the patient, witnessed by a nurse, and placed in the patient's chart. After review of previous anaesthesic history and IV conscious sedation the patient was deemed safe to proceed with today's procedure with IV conscious sedation as ASA class II designation. Safety time-out was performed to confirm patient ID, procedure to be performed and site of procedure. IV sedation was accomplished with a combination of 2mg of Versed and 50mcg of Fentanyl was administered by the RN after DO order, titrated to patient comfort during the course of the procedure while the patient remained responsive to all verbal commands In the prone position, following sterile prep and drape of the lumbar region, the right L4, L5 and S1 anatomical location of the medial branch of the dorsal ramus was identified fluoroscopically. Subsequently an anesthetic skin wheal using 1% lidocaine solution was initiated at each of the anatomical spots. Subsequently then a 22-gauge 3.5-inch spinal needle was atraumatically introduced and advanced under fluoroscopic guidance at each of the corresponding sites at the right L4, L5 and S1 MB. After negative aspiration, 0.2cc of Isovue 200 was injected, confirming placement without vascular or intrathecal uptake. Subsequently then 0.5cc of 0.5% Marcaine solution was injected at each of the corresponding sites at the right L4, L5 and S1 medial branch locations. The identical procedure was replicated on the left. The patient tolerated the procedure well without signs or symptoms of complications prior to transfer to the recovery area continued monitoring without incident. Post-procedure, the patient was monitored initiating provocative activities to measure the amount of relief from block of the facetogenic pain. The patient reported a VAS of 7 prior to the procedure and a post-procedure VAS of 1. It has been a pleasure to assist in the diagnostic and therapeutic care of your patient. POST OP INSTRUCTIONS The patient was provided with a Pain Log to complete over the next several hours and subsequent days prior to the patient's follow up with the ordering physician. If the patient has nursing home assistant relief to the solution applied, then they may be a candidate for medial branch rhizotomy. The patient is aware, was provided, once again, with a Pain Log and will follow up with the referring physician for review and clinical correlation
== END 2022-02-07 15:50 | disposition home or self-care (01) ==
PROVIDERS: PCP Internal Medicine; Referring Provider Physical Medicine & Rehabilitation; Visit Provider Physical Medicine & Rehabilitation
DX: M47.816 Spondylosis without myelopathy or radiculopathy, lumbar region (principal); M47.817 Spondylosis without myelopathy or radiculopathy, lumbosacral region
CPT/HCPCS: 64493; 64494; 99152; J2250; J3010

== ENCOUNTER 2022-07-31 13:53 | Emergency (ER) | payer MEDICARE, OTHER, SELFPAY ==
[2022-07-31] VITALS (22 sets, daily range): BP systolic 112–186; BP diastolic 59–105; PULSE 66–90; RESP 16–35; TEMP 36.3–36.6; O2SAT 94–99; BMI 22.8
--- NOTE | 2022-07-31 14:24 | DI.RAD.S_ITS ---
PROCEDURE: XR CHEST 2V INDICATIONS: shortness of breath TECHNIQUE: 2 views of the chest were acquired. COMPARISON: [facility], , XR CHEST 1V, 05/20/2020, 9:38. FINDINGS: Surgical changes and devices: None. Lungs and pleura: Lungs are clear. No pleural effusions or pneumothorax. Mediastinum: Mediastinal contours are normal. Heart size is normal. Bones and chest wall: No suspicious bony abnormalities. Soft tissues appear unremarkable. IMPRESSION: No acute process. Dictated by: Emily Block M.D. on 07/31/2022 at 14:57 Approved by: Emily Block M.D. on 07/31/2022 at 14:57
[2022-07-31 14:52] LABS: Add Manual Diff / Slide Review NO; Basophils Absolute Auto 0 /uL (0-100); Basophils Percent Auto 0.3 % (0-2); Eosinophils Absolute Auto 200 /uL (0-450); Eosinophils Percent Auto 1.8 % (2-4); Hematocrit 23.4 % (36-46); Hemoglobin 7.6 g/dL (12.0-16.0); Lymphocytes Absolute Auto 1100 /uL (1100-4500); Lymphocytes Percent Auto 10.2 % (25-40); Mean Corpuscular HGB Conc 32.6 % (30-36); Mean Corpuscular Volume 79.8 fL (80-100); Monocytes Absolute Auto 700 /uL (0-900); Monocytes Percent Auto 7.1 % (3-14); Neutrophils Absolute Auto 8300 /uL (1500-7000); Neutrophils Percent Auto 80.6 % (50-75); Platelet Count 349 X10^3/uL (150-400); Red Blood Cell Count 2.94 X10^6/uL (4.0-5.2); Red Cell Distribution Width 17.6 % (11.6-14.8); White Blood Cell Count 10.3 X10^3/uL (4.5-11.0)
[2022-07-31 15:07] LABS: Lactate (Lactic Acid) 0.9 mmol/L (0.7-2.1)
[2022-07-31 15:11] LABS: Alanine Aminotransferase 30 IU/L (<35); Albumin 3.4 g/dL (3.5-5.0); Albumin Globulin Ratio 1.2 (1.0-2.8); Alkaline Phosphatase 70 U/L (38-126); Aspartate Aminotransferase 27 IU/L (14-36); BUN Creatinine Ratio 27.3 (6-22); Bilirubin Total 0.3 mg/dL (0.2-1.3); Blood Urea Nitrogen 36 mg/dL (7-17); Calcium 8.4 mg/dL (8.4-10.2); Carbon Dioxide 28 mmol/L (22-32); Chloride 104 mmol/L (98-107); Estimated Glomerular Filt Rate 40 mL/min (>60); Globulin 2.9 g/dL (1.7-4.1); Glucose 106 mg/dL (80-110); HEMOLYSIS < 15 (0-50); Potassium 3.2 mmol/L (3.4-5.1); Sodium 139 mmol/L (137-145); Total Protein 6.3 g/dL (6.3-8.2)
[2022-07-31 15:17] LABS: COVID19 -Nasal RAPID Negative (Negative)
[2022-07-31 15:19] LABS: NT-proBNP (BNP-Adult 18+) 387 pg/mL (<450)
[2022-07-31 17:46] LABS: Creatine Kinase 23 U/L (30-135)
[2022-07-31 17:59] LABS: Troponin I < 0.012 ng/mL (0.01-0.034)
--- NOTE | 2022-07-31 18:30 | ED_ITS ---
HPI - General Adult General Chief complaint: Shortness of Breath/Dyspnea Stated complaint: congestive heart failure sob Time Seen by Provider: 07/31/22 16:10 Source: patient Mode of arrival: Ambulatory History of Present Illness HPI narrative: Patient is an 81-year-old female. Has a questionable history of COPD. She states that she was told that she would COPD and then another time told that she did not. She does not wear oxygen at home. She does have inhalers/nebulizers at home that she takes. She also states she is a history of heart failure. Is on diuretics. Greater than 1 month ago she had a procedure done at an outside [facility] with regard to her right carotid. There was a stent that was replaced. During that time she stated that she was taken off of her diuretics. She is since been put back on the diuretics. Since the procedure she has had shortness of breath specifically with exertion. No chest pain. She has been evaluated at outside emergency department. Has had a CT scan of her chest to evaluate for pu lmonary embolism which she states was negative. She also has seen her sewer digger who for a period of time increased her diuretic. She states that she did lose weight during this time but it did not improve any of her breathing issues. She is now back on her normal dose. He is also seen her primary doctor. Has also seen her ux consultant. She received a phone call from her sewer digger telling her to come to the emergency department for ?observation ?patient states she is never been anemic in the past. Has never had any dark- colored stools until this afternoon. Related Data Home Medications Medication Instructions Recorded Confirmed Vitamin D3 1 cap PO DAILY 01/19/20 11/28/21 acetaminophen 325 mg tablet 650 mg PO Q4H PRN Fever Or Pain 01/19/20 11/28/21 aspirin 81 mg tablet,delayed 81 mg PO DAILY 01/19/20 11/28/21 release ezetimibe 10 mg tablet 10 mg PO DAILY 01/19/20 11/28/21 rosuvastatin 20 mg tablet 20 mg PO DAILY 01/19/20 11/28/21 spironolactone 25 mg tablet 25 mg PO DAILY 01/19/20 11/28/21 vit C 226 mg-vit E 90 mg-copper 1 cap PO DAILY 01/19/20 11/28/21 0.8 mg-zinc oxide-lutein 5 mg capsule (PreserVision Lutein) alendronate 70 mg tablet 70 mg PO QWEEK 11/28/21 11/28/21 vidtizdvnzg-irxdndosw-lqiiixbe inhalation 11/28/21 11/28/21 [Trelegy Ellipta] torsemide 10 mg tablet 10 mg PO DAILY 11/28/21 11/28/21 Previous Rx's Medication Instructions Recorded docusate sodium 100 mg capsule 100 mg PO DAILY #20 caps 01/29/22 (Colace) sennosides 8.6 mg capsule (senna) 8.6 mg PO DAILY PRN constipation 01/29/22 #20 caps tramadol 50 mg tablet 50 mg PO TID PRN pain #30 tabs 02/01/22 Allergies Allergy/AdvReac Type Severity Reaction Status Date / Time bacitracin Allergy Rash Verified 07/31/22 14:23 [From Neosporin ([id number])] neomycin Allergy Rash Verified 07/31/22 14:23 [From Neosporin (kzs-dsp-jkegy)] polymyxin B Allergy Rash Verified 07/31/22 14:23 [From Neosporin (csn-sqe-carav)] gabapentin AdvReac Intermediate Verified 04/03/22 14:57 Review of Systems Review of Systems ROS Unobtainable: All systems reviewed & are unremarkable except as noted in HPI and below Patient History Medical History Amaurosis fugax, right eye Anemia Congestive heart failure COPD (chronic obstructive pulmonary disease) Facet arthropathy, lumbar History of tobacco use Lumbosacral radiculopathy at L5 Surgical History History of carotid endarterectomy Social History Smoking Status: Former smoker Smoking Status: Former smoker alcohol intake frequency: 0-2 drinks per day Substance Use Type: does not use Exam Initial Vital Signs Initial Vital Signs: Vital Signs Temperature 97.4 F L 07/31/22 14:19 Pulse Rate 90 07/31/22 14:19 Respiratory Rate 22 07/31/22 14:19 Blood Pressure 149/72 H 07/31/22 14:19 Pulse Oximetry 99 07/31/22 14:19 Oxygen Delivery Method 07/31/22 14:19 Const General: cooperative and comfortable HENMT Head: normal to inspection, normocephalic and atraumatic Resp Effort & Inspection: normal respiratory effort Auscultation: clear to auscultation bilaterally Cardio Rate: regular rate Rhythm: regular rhythm GI Inspection: normal to inspection Palpation: soft and No tender Skin General: no rashes or lesions noted Neuro General: patient alert, patient awake, patient oriented x3 and moves all extremities Extrem General: No edema Psych Appearance: grossly normal Scores GCS Nancy coma scale eye opening: Spontaneous [place] coma scale verbal response: Orientated Nancy coma scale motor response: Obey commands Nancy coma scale total score: 15 Course Orders Ordered: ED Orders 07/31/22 18:05 Packed Cells Stat Type and Screen Stat 07/31/22 18:30 Troponin I Stat Vital Signs Vital signs: Vital Signs - 8 hr 07/31/22 18:37 07/31/22 20:10 07/31/22 20:30 Temperature 97.7 F 97.4 F L Pulse Rate 90 75 74 Respiratory Rate 24 18 20 Blood Pressure 120/60 132/59 L Pulse Oximetry 99 Oxygen Delivery Method Room Air 07/31/22 22:47 07/31/22 18:01 07/31/22 18:30 Temperature 97.8 F Pulse Rate 67 66 69 Respiratory Rate 16 30 H 30 H Blood Pressure 115/62 Pulse Oximetry 96 98 Oxygen Delivery Method 07/31/22 18:41 07/31/22 18:41 07/31/22 19:00 Temperature Pulse Rate 77 68 Respiratory Rate 30 H 26 H Blood Pressure 186/83 H Pulse Oximetry 94 Oxygen Delivery Method 07/31/22 19:01 07/31/22 19:01 07/31/22 19:30 Temperature Pulse Rate 69 Respiratory Rate 29 H Blood Pressure 148/105 H 153/81 H Pulse Oximetry Oxygen Delivery Method 07/31/22 19:30 07/31/22 20:00 07/31/22 20:01 Temperature Pulse Rate 73 70 Respiratory Rate 28 H 26 H Blood Pressure 112/68 Pulse Oximetry Oxygen Delivery Method 07/31/22 20:01 07/31/22 20:11 07/31/22 20:11 Temperature Pulse Rate 74 73 Respiratory Rate 32 H 28 H Blood Pressure 120/60 Pulse Oximetry 95 Oxygen Delivery Method 07/31/22 20:30 07/31/22 20:41 07/31/22 20:41 Temperature Pulse Rate 72 74 Respiratory Rate 35 H 29 H Blood Pressure 132/59 L Pulse Oximetry 95 99 Oxygen Delivery Method 07/31/22 21:00 07/31/22 21:01 07/31/22 21:01 Temperature Pulse Rate 73 73 Respiratory Rate 34 H 23 Blood Pressure 128/66 Pulse Oximetry 98 97 Oxygen Delivery Method 07/31/22 21:30 07/31/22 21:30 07/31/22 22:00 Temperature Pulse Rate 74 Respiratory Rate 29 H Blood Pressure 128/63 130/60 Pulse Oximetry 98 Oxygen Delivery Method 07/31/22 22:00 07/31/22 22:30 07/31/22 22:30 Temperature Pulse Rate 72 74 Respiratory Rate 28 H 30 H Blood Pressure 122/68 Pulse Oximetry 98 97 Oxygen Delivery Method 07/31/22 22:48 07/31/22 22:48 07/31/22 23:00 Temperature Pulse Rate 66 Respiratory Rate 26 H Blood Pressure 115/62 125/68 Pulse Oximetry 97 Oxygen Delivery Method 07/31/22 23:00 Temperature Pulse Rate 68 Respiratory Rate 25 H Blood Pressure Pulse Oximetry 97 Oxygen Delivery Method Room Air Medical Decision Making Lab Data Lab results reviewed: Yes I reviewed the patient's lab results. Result diagrams: 07/31/22 14:40 07/31/22 14:40 Labs: Lab Results 07/31/22 07/31/22 07/31/22 Range/Units 14:40 14:40 14:40 WBC 10.3 (4.5-11.0) X10^3/uL RBC 2.94 L (4.0-5.2) X10^6/uL Hgb 7.6 L (12.0-16.0) g/dL Hct 23.4 L (36-46) % MCV 79.8 L (80-100) fL MCH 26.0 (26-34) PG MCHC 32.6 (30-36) % RDW 17.6 H (11.6-14.8) % Plt Count 349 (150-400) X10^3/uL Neut % (Auto) 80.6 H (50-75) % Lymph % (Auto) 10.2 L (25-40) % Rout[place] % (Auto) 7.1 (3-14) % Eos % (Auto) 1.8 L (2-4) % Baso % (Auto) 0.3 (0-2) % Neut # (Auto) 8300 H (2399-4206) /uL Lymph # (Auto) 1100 (1041-1771) /uL [place] # (Auto) 700 (0-900) /uL Eos # (Auto) 200 (0-450) /uL Baso # (Auto) 0 (0-100) /uL Sodium 139 (137-145) mmol/L Potassium 3.2 L (3.4-5.1) mmol/L Chloride 104 (98-107) mmol/L Carbon Dioxide 28 (22-32) mmol/L BUN 36 H (7-17) mg/dL Creatinine 1.32 H (0.52-1.04) mg/dL Estimated GFR 40 L (>60) mL/min BUN/Creatinine Ratio 27.3 H (6-22) Glucose 106 (80-110) mg/dL Lactate 0.9 (0.7-2.1) mmol/L Calcium 8.4 (8.4-10.2) mg/dL Total Bilirubin 0.3 (0.2-1.3) mg/dL AST 27 (14-36) IU/L ALT 30 (<35) IU/L Alkaline Phosphatase 70 (38-126) U/L Total Creatine Kinase (30-135) U/L CK-MB (CK-2) CK-MB (CK-2) Rel Index Troponin I (0.01-0.034) ng/mL NT-Pro-B Natriuret Pep 387 (<450) pg/mL Total Protein 6.3 (6.3-8.2) g/dL Albumin 3.4 L (3.5-5.0) g/dL Globulin 2.9 (1.7-4.1) g/dL Albumin/Globulin Ratio 1.2 (1.0-2.8) SARS-CoV-2 (PCR) (Negative) Blood Type Antibody Screen Crossmatch 07/31/22 07/31/22 07/31/22 Range/Units 14:40 14:44 18:05 WBC (4.5-11.0) X10^3/uL RBC (4.0-5.2) X10^6/uL Hgb (12.0-16.0) g/dL Hct (36-46) % MCV (80-100) fL MCH (26-34) PG MCHC (30-36) % RDW (11.6-14.8) % Plt Count (150-400) X10^3/uL Neut % (Auto) (50-75) % Lymph % (Auto) (25-40) % Routt % (Auto) (3-14) % Eos % (Auto) (2-4) % Baso % (Auto) (0-2) % Neut # (Auto) (2955-6971) /uL Lymph # (Auto) (0682-8638) /uL Routt # (Auto) (0-900) /uL Eos # (Auto) (0-450) /uL Baso # (Auto) (0-100) /uL Sodium (137-145) mmol/L Potassium (3.4-5.1) mmol/L Chloride (98-107) mmol/L Carbon Dioxide (22-32) mmol/L BUN (7-17) mg/dL Creatinine (0.52-1.04) mg/dL Estimated GFR (>60) mL/min BUN/Creatinine Ratio (6-22) Glucose (80-110) mg/dL Lactate (0.7-2.1) mmol/L Calcium (8.4-10.2) mg/dL Total Bilirubin (0.2-1.3) mg/dL AST (14-36) IU/L ALT (<35) IU/L Alkaline Phosphatase (38-126) U/L Total Creatine Kinase 23 L (30-135) U/L CK-MB (CK-2) TNP CK-MB (CK-2) Rel Index TNP Troponin I < 0.012 (0.01-0.034) ng/mL NT-Pro-B Natriuret Pep (<450) pg/mL Total Protein (6.3-8.2) g/dL Albumin (3.5-5.0) g/dL Globulin (1.7-4.1) g/dL Albumin/Globulin Ratio (1.0-2.8) SARS-CoV-2 (PCR) Negative (Negative) Blood Type A Positive Antibody Screen Negative Crossmatch See Detail 07/31/22 Range/Units 18:30 WBC (4.5-11.0) X10^3/uL RBC (4.0-5.2) X10^6/uL Hgb (12.0-16.0) g/dL Hct (36-46) % MCV (80-100) fL MCH (26-34) PG MCHC (30-36) % RDW (11.6-14.8) % Plt Count (150-400) X10^3/uL Neut % (Auto) (50-75) % Lymph % (Auto) (25-40) % Routt % (Auto) (3-14) % Eos % (Auto) (2-4) % Baso % (Auto) (0-2) % Neut # (Auto) (4610-1411) /uL Lymph # (Auto) (1599-7507) /uL Routt # (Auto) (0-900) /uL Eos # (Auto) (0-450) /uL Baso # (Auto) (0-100) /uL Sodium (137-145) mmol/L Potassium (3.4-5.1) mmol/L Chloride (98-107) mmol/L Carbon Dioxide (22-32) mmol/L BUN (7-17) mg/dL Creatinine (0.52-1.04) mg/dL Estimated GFR (>60) mL/min BUN/Creatinine Ratio (6-22) Glucose (80-110) mg/dL Lactate (0.7-2.1) mmol/L Calcium (8.4-10.2) mg/dL Total Bilirubin (0.2-1.3) mg/dL AST (14-36) IU/L ALT (<35) IU/L Alkaline Phosphatase (38-126) U/L Total Creatine Kinase (30-135) U/L CK-MB (CK-2) CK-MB (CK-2) Rel Index Troponin I < 0.012 (0.01-0.034) ng/mL NT-Pro-B Natriuret Pep (<450) pg/mL Total Protein (6.3-8.2) g/dL Albumin (3.5-5.0) g/dL Globulin (1.7-4.1) g/dL Albumin/Globulin Ratio (1.0-2.8) SARS-CoV-2 (PCR) (Negative) Blood Type Antibody Screen Crossmatch Imaging Data Chest x-ray: Radiologist's Impression: [address] [address] XRay Report Signed Patient: Lucas Otero MR#: [id number] : 1940 Acct:[id number] Age/Sex: 81 / F Date of Service: 07/31/22 Loc: ED Accession Number: [id number] ?? Procedure: XR chest 2V Ordering Provider: Michelle Gleason D.O. PROCEDURE:? XR CHEST 2V ? INDICATIONS:? shortness of breath ? TECHNIQUE:? 2 views of the chest were acquired.? ? COMPARISON:? [facility], CR, XR CHEST 1V, 05/20/2020, 9:38. ? FINDINGS:? ? Surgical changes and devices:? None.? ? Lungs and pleura:? Lungs are clear.? No pleural effusions or pneumothorax.? ? Mediastinum:? Mediastinal contours are normal.? Heart size is normal.? ? Bones and chest wall:? No suspicious bony abnormalities.? Soft tissues appear unremarkable.? ? IMPRESSION:? No acute process. ? ? Dictated by: Emily Block M.D. on 07/31/2022 at 14:57 ? ? Approved by: Emily Block M.D. on 07/31/2022 at 14:57? ECG Data Attestation: I personally reviewed and interpreted this ECG as follows: Interpretation: Sinus rhythm Ventricular rate is 70 Normal axis Normal QRS Normal QTC Incomplete right bundle branch block No ST T wave changes MDM Narrative Medical decision making narrative: Patient's symptoms have been going on for several weeks/months. She has a questionable history of COPD. She does have albuterol inhalers and nebulizers at home and also oxygen at home that she states she does not use. Has had 2- troponins. Chest x-ray and BNP and physical exam are not consistent with heart failure. She also states that her sewer digger increased her diuretic and she lost several pounds during this time however the shortness of breath she is experiencing did not change. She is afebrile. No signs of pneumonia. She stated that she had a CT scan to evaluate for pulmonary embolism the last time she was at the emergency department and they told her that she did not have a clot in her lung. Repeating a CT scan is not warranted currently. Patient is slightly anemic today. Unsure the exact etiology of this. Just this afternoon she stated that she had some dark-colored stools but has never had anything like this in the past. Had a discussion with her regarding her anemia today. She stated that when she had blood drawn at her sewer digger's office recently there was no mention of any anemia. We did discuss that potentially her shortness of breath/dyspnea on exertion was because of her anemia. Discussed the risks and benefits of blood transfusion. We did discuss that she was not necessarily at a level where a blood transfusion would be necessary but she very well could benefit from this. After this discussion she was okay with the transfusion. Afterwards she reported only minimal improvement. Given the length of time that the symptoms been going on and the workup that has happened this far patient can be discharged home. Informed her that she may have to use her oxygen more often at home especially when she is walking. She expressed understanding of this. I do think that she should follow-up with her ux consultant that she may need pulmonary function testing. She was given return precautions. She expressed understanding and agreement. Discharge Plan Departure Patient Disposition: Home Clinical Impression: Dyspnea on exertion, Anemia Instructions: Anemia, How to Manage Shortness of Breath Activity Restrictions/Additional Instructions: I recommend you contact your primary doctor for follow-up to discuss potential referral to see General surgery or Gastroenterology is you may need a colonoscopy for further evaluation of your anemia. I recommend that you start on a medicine called Nexium or the generic version of this medication. You can purchase npjo-xny-icypuzt. Please take it as directed. Also recommend you contact your ux consultant to discuss the indications for pulmonary function testing. Return to the emergency department for any new or worsening symptoms. You may need to use your home oxygen when you are up walking around to try to help with your symptoms. Prescriptions: No Action acetaminophen 325 mg Tablet 650 mg PO Q4H PRN (Reason: Fever Or Pain) aspirin 81 mg Tablet,Delayed Release (Dr/Ec) 81 mg PO DAILY spironolactone 25 mg Tablet 25 mg PO DAILY ezetimibe 10 mg Tablet 10 mg PO DAILY rosuvastatin 20 mg Tablet 20 mg PO DAILY PreserVision Lutein 226 mg-200 unit -5 mg-0.8 mg Capsule 1 cap PO DAILY Vitamin D3 1 cap PO DAILY docusate sodium [Colace] 100 mg capsule 100 mg PO DAILY Qty: 20 0RF senna 8.6 mg capsule 8.6 mg PO DAILY PRN (Reason: constipation) Qty: 20 0RF torsemide 10 mg tablet 10 mg PO DAILY alendronate 70 mg tablet 70 mg PO QWEEK dkishuxjnnv-pfrlydjqo-dbjxvxeg [Trelegy Ellipta] inhalation tramadol 50 mg tablet 50 mg PO TID PRN (Reason: pain) Qty: 30 1RF Referrals: Patt Salmon MD [Primary Care Provider] - Visit Report Forms: Patient Portal/API
--- NOTE | 2022-07-31 18:36 | PC.NURSE ---
Patient ambulated around the unit. She became visibly short of breath. Oxygen saturation remained 99-100% on room air. Heart rate in the 90s.
[2022-07-31 19:02] LABS: Troponin I < 0.012 ng/mL (0.01-0.034)
== END 2022-07-31 23:37 | disposition home or self-care (01) ==
PROVIDERS: Emergency Medicine; Emergency Provider Emergency Medicine; PCP Internal Medicine
DX: R06.00 Dyspnea, unspecified (principal); D64.9 Anemia, unspecified
CPT/HCPCS: 36415; 36430; 71046; 80053; 82550; 83605; 83880; 84484; 85025; 86850; 86900; 86901; 87635; 93005; 99284; C9803; P9016

== ENCOUNTER 2024-04-18 11:48 | Day surgery (SDC) | payer MEDICARE, OTHER, SELFPAY ==
--- NOTE | 2024-04-18 | PATH_ITS ---
[facility] Accession Number: [id number] No. of containers..01 Tissue . 01 Material submitted: . gastrointestinal site - GASTRIC . 01 Diagnosis: GASTRIC : Superficial fragment of benign gastric type glandular epithelium. No active inflammation, intestinal metaplasia, or dysplasia identified. No Helicobacter organisms identified on H/E stain. [facility] 04/23/20241707 Local . 01 Electronically signed: . Drake Becerra MD, Pathologist NPI- [id number] . 01 Gross description: . GASTRIC : Received in formalin is 1 fragment(s) of page, soft tissue measuring 0.2 x 0.2 x 0.2 cm submitted entirely in 1 cassette(s) /[facility] 04/23/20241707 Local . 01 Pathologist provided ICD-10: D64.9 . 01 CPT . 006518 Specimen Comment: A courtesy copy of this report has been sent to [phone] Performed at: [address] [address], [place], [place] [id number] MD Drake Becerra MD Phone: [phone]
[2024-04-18] MEDS: LACTATED RINGERS 1,000 ML 42 ML IV (12:09)
[2024-04-18 12:15] VITALS: BP 124/80; PULSE 84; RESP 17; TEMP 36.4; O2SAT 98
--- NOTE | 2024-04-18 13:15 | PM.PREOP ---
Pre-operative Note Interval Note History & Physical reviewed/Exam performed by Physician: Yes Changes to H&P: No
[2024-04-18 13:48] VITALS: BP 101/61; PULSE 65; RESP 18; TEMP 36.6; O2SAT 95
[2024-04-18 13:53] VITALS: BP 109/66; PULSE 65; RESP 18; O2SAT 95
--- NOTE | 2024-04-18 13:54 | PM.OP.EC ---
Operative Date/Time/Diagnoses Date of procedure: 04/18/24 Time of procedure: 13:54 Pre-op diagnosis: ANEMIA Post-op diagnosis: other (Gastric ulcer) Procedure & Clinicians Study performed: Diagnostic esophagogastroduodenoscopy and colonoscopy Same procedure as scheduled: Yes Indications: 83-year-old woman with symptomatic anemia here for upper and lower endoscopy. Surgeon: Mike Avelar Procedure Notes Procedure in detail: The history and physical was performed/updated and the patient is ASA class is 2. The procedure was discussed in detail with the patient. Potential risks complications including infection, bleeding, missed diagnosis, perforation, need for surgery, and were explained. Their questions were answered and informed consent was obtained. Patient placed in left lateral decubitus position. Time out was performed. Procedural sedation was administered by Anesthesia. A bite block was placed. the scope was inserted into the mouth and advanced through the esophagus and into the stomach. the pylorus was intubated and the duodenum was examined to the 2nd portion.. The scope was retroflexed within the stomach. The stomach was then decompressed and scope pulled back to the GE junction. The scope was then removed Examination began with a thorough inspection of the perianal area there was no evidence of fissures, fistulae, external hemorrhoids or cutaneous malignancy. The colonoscopy scope was then placed into the anal canal and was advanced to the cecum, which was identified by the ileocecal valve, the appendiceal orifice and the confluence of the taenia. The scope was then slowly withdrawn examining colon thoroughly in all directions, irrigating it of any residual stool. FINDINGS -1 cm gastric ulcer within the body of the stomach. Appears to be old and healing no active hemorrhage. Biopsy adjacent to the ulcer was taken with forceps -diffuse gastritis of the gastric body -unremarkable colonoscopy The patient tolerated the procedure well. They will be discharged once criteria are met. The prep was of good/excellent quality. The withdrawl time was * 6 minutes. Specimen(s): other (Gastric) Impression: Healing gastric ulcer Post-procedure Plan for aftercare: Omeprazole 20 mg daily Disposition: same day surgery
[2024-04-18 13:58] VITALS: BP 114/77; PULSE 69; RESP 12; O2SAT 98
== END 2024-04-18 14:15 | disposition home or self-care (01) ==
PROVIDERS: PCP Physician Assistant; Referring Provider Surgery; Visit Provider Surgery
PROC: 0DJ08ZZ Inspection of Upper Intestinal Tract, Via Natural or Artificial Opening Endoscopic (ICD-10-PCS; CPT 43235; principal; 2024-04-18 13:15)
PROC: 0DJD8ZZ Inspection of Lower Intestinal Tract, Via Natural or Artificial Opening Endoscopic (ICD-10-PCS; CPT 45378; 2024-04-18 13:15)
DX: D64.9 Anemia, unspecified (principal); K29.70 Gastritis, unspecified, without bleeding
CPT/HCPCS: 45378; 43239; J2704

== ENCOUNTER → 2024-06-25 10:09 | Outpatient (CLI) | payer MEDICARE, OTHER, SELFPAY ==
--- NOTE | 2024-06-25 10:10 | DI.CT.S_ITS ---
PROCEDURE: CT CHEST WO CON INDICATIONS: Hx of RUL lobectomy, recent new pleural effusion? TECHNIQUE: Noncontrast 5 mm thick sections acquired from the pulmonary apices to the posterior costophrenic angles. 1 mm lung window, 5 mm thick coronal and sagittal and 7 mm axial MIP reformats were then acquired. For radiation dose reduction, the following was used: automated exposure control, adjustment of mA and/or kV according to patient size. COMPARISON: [facility], CR, XR CHEST 2V, 07/31/2022, 14:49. This appears to represent a pre-upper lobectomy study given the absence of distortion at the right upper lobe. The current CT scanning is post-right upper lobectomy. FINDINGS: Image quality: Quality of visualization is reduced by absence of intravenous contrast.. Lower Neck: No enlarged lymph nodes. Thyroid: No thyroid nodules which require sonographic follow up, per consensus guidelines. Axillae: No enlarged lymph nodes. Chest Wall: Unremarkable. Bones: Unremarkable. Lungs and Pleura: No pneumothorax or pleural effusions. No consolidation or suspicious nodules. Expected postoperative distortion after right upper lobectomy. Calcified granulomas have shifted cephalad after lobectomy within the right lung. Heart: Heart size is normal. No pericardial effusion. Thoracic Vessels: The aorta and pulmonary arteries demonstrate normal size. Mediastinum and Shanika: No enlarged lymph nodes. Esophagus: No wall thickening. No hiatal hernia. Upper Abdomen: Visualized upper abdomen solid organs and bowel loops appear normal. Small punctate splenic calcified granulomas. IMPRESSION: As noted above the quality of visualization is significantly limited for detection of recurrent neoplasm by the absence of intravenous contrast. There is expected postsurgical distortion after right upper lobectomy. 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 Splenic punctate calcified granulomas also are present. No definite evidence of metastatic disease considering the absence of intravenous contrast. Dictated by: Cale Ravi M.D. on 06/25/2024 at 12:56 Approved by: Cale Ravi M.D. on 06/25/2024 at 13:00
== END ==
PROVIDERS: PCP Nurse Practitioner Family; Referring Provider Student in an Organized Health Care Education/Training Program; Visit Provider Student in an Organized Health Care Education/Training Program
DX: J90 Pleural effusion, not elsewhere classified (principal)
CPT/HCPCS: 71250

== ENCOUNTER 2024-09-01 12:42 | Day surgery (SDC) | payer MEDICARE, OTHER, SELFPAY ==
--- NOTE | 2024-09-01 | PATH_ITS ---
[facility] Accession Number: [id number] No. of containers..01 Tissue . 01 Material submitted: . small bowel - SMALL BOWL, DUODENUM . 01 Diagnosis: A. DUODENUM, BIOPSY: Duodenal mucosa with no significant diagnostic abnormality. Negative for active inflammation, features of sprue, dysplasia, or malignancy. [facility] 09/03/2024 1553 Local . 01 Electronically signed: . Dyan Villalobos MD, Pathologist NPI- [id number] . 01 Gross description: . SMALL BOWL, DUODENUM: Received in formalin is 1 fragment(s) of page, soft tissue measuring 0.3 x 0.2 x 0.2 cm submitted entirely in 1 cassette(s) /[facility] 09/02/2024 2341 Local . 01 Pathologist provided ICD-10: D50.0, K21.9, Z80.0 . 01 CPT . 452089 Specimen Comment: A courtesy copy of this report has been sent to [facility] Performed at: [address] [address], [place], [place] [id number] MD Drake Becerra MD Phone: [phone]
[2024-09-01 13:58] VITALS: BP 138/72; PULSE 78; RESP 16; TEMP 36.1; O2SAT 97; BMI 20.7
--- NOTE | 2024-09-01 14:09 | PM.PREOP ---
Pre-operative Note Interval Note History & Physical reviewed/Exam performed by Physician: Yes Changes to H&P: No H&P completed within 30 days and has changed as indicated here:: Tete notes a little wheezy today. Exam shows mild bilateral wheezes, L>R ASA Class (for procedural sedation): III
--- NOTE | 2024-09-01 14:11 | PM.OP.EC ---
Operative Date/Time/Diagnoses Date of procedure: 09/01/24 Pre-op diagnosis: See indication and findings Procedure & Clinicians Study performed: EGD and colonoscopy Indications: Iron deficiency anemia and GE reflux. Previous notes stated family history of colon cancer but patient now relates that this was a family history of bladder cancer and that she misspoke. Surgeon: Alden Quijano Procedure Notes Procedure in detail: After informed consent was obtained the patient was placed in left lateral decubitus position. The video upper scope was placed into the oropharynx with the help of the patient swallowed into the esophagus. The esophagus stomach and duodenum were carefully examined. On withdrawal, retroflexed view the GE junction was performed. The scope was removed. The patient tolerated procedure well. The patient was then turned to the colonoscope substituted. This was passed in the colon to the cecum. Preparation was good. On slow withdrawal mucosa was carefully examined. The scope was removed. The patient tolerated procedure well. Blood loss none Complications none Sedation mac Findings EGD 1. Normal esophagus 2. Mild gastric erythema but otherwise negative for erosion or ulcer 3. Normal duodenal bulb and sweep. Biopsies taken to rule out celiac Colonoscopy 1. Normal colonoscopy to cecum though colon was quite tortuous We will follow up on pathology results but the patient should follow up with GI provider Brooke OCONNOR
[2024-09-01] MEDS: ALBUTEROL/IPRATROPIUM 3 ML AMPUL INH (14:13)
[2024-09-01] MEDS: LACTATED RINGERS 1,000 ML 42 ML IV (14:33)
[2024-09-01 15:05] VITALS: BP 95/52; PULSE 76; RESP 15; TEMP 36.9; O2SAT 94
[2024-09-01 15:09] VITALS: BP 95/52; PULSE 79; RESP 22; O2SAT 94
[2024-09-01 15:15] VITALS: BP 98/55; PULSE 82; RESP 26; O2SAT 95
[2024-09-01 15:20] VITALS: BP 115/63; PULSE 78; RESP 25; TEMP 36.4; O2SAT 78
[2024-09-01 15:23] VITALS: BP 113/63; PULSE 97; RESP 11; TEMP 36.7; O2SAT 98
== END 2024-09-01 16:16 | disposition home or self-care (01) ==
PROVIDERS: PCP Nurse Practitioner Family; Referring Provider Internal Medicine Gastroenterology; Visit Provider Internal Medicine Gastroenterology
PROC: 0DJ08ZZ Inspection of Upper Intestinal Tract, Via Natural or Artificial Opening Endoscopic (ICD-10-PCS; CPT 43235; principal; 2024-09-01 14:00)
PROC: 0DJD8ZZ Inspection of Lower Intestinal Tract, Via Natural or Artificial Opening Endoscopic (ICD-10-PCS; CPT 45378; 2024-09-01 14:00)
DX: D50.9 Iron deficiency anemia, unspecified (principal); K21.9 Gastro-esophageal reflux disease without esophagitis; J44.9 Chronic obstructive pulmonary disease, unspecified; Z80.0 Family history of malignant neoplasm of digestive organs; Z85.118 Personal history of other malignant neoplasm of bronchus and lung
CPT/HCPCS: 45378; 43239; J2704

== ENCOUNTER → 2025-02-06 09:59 | Outpatient (CLI) | payer MEDICARE, OTHER, SELFPAY ==
--- NOTE | 2025-02-06 10:00 | DI.NM.S_ITS ---
PROCEDURE: NM MEHRDAD PERF SPECT R&S PHARM Rest and pharmacological stress myocardial perfusion SPECT with gated imaging and ejection fraction RADIOPHARMACEUTICAL: 9.7 mCi Tc-99m tetrafosmin IV at rest and 25.8 mCi Tc-99m tetrafosmin IV at peak effect of pharmacological stress. [id number] was performed. INDICATIONS: HYPERCHOLESTEROLEMIA/CHF/CHEST PRESSURE TECHNIQUE: Radiopharmaceutical was injected at peak stress test, and also at rest. SPECT images were obtained. SPECT myocardial perfusion images were displayed in short axis, horizontal long axis, and vertical long axis views. Gated images were reviewed using [employer] software. COMPARISON: None. CARDIAC STRESS: A pharmacologic stress test was performed under the supervision of an attending staff, using an infusion of lexiscan 0.4mg IV X1. Hemodynamic data: There is normal blood pressure and heart rate response to pharmacologic stress. Symptoms: The patient denied anginal chest pain. Aminophylline: none EKG: No diagnostic changes of ischemia; occasional PVCs during the study. FINDINGS: Raw data: There is good myocardial uptake of radiotracer. No significant motion artifacts. Khwi-ia-lznmy ratio is 0.33 (normal is less than 0.38 for tetrafosmin tracer). Left ventricle function: Gated images demonstrate normal left ventricular wall thickening. No segmental wall motion abnormalities. No transient ischemic dilation; TID is 1.05 (normal less than 1.3). Left ventricle resting end diastolic volume is 58 mL. Left ventricle stress ejection fraction is 94%; normal range is above 45%. Myocardial perfusion: There is normal distribution of activity in the right and left ventricular myocardium. No fixed or reversible perfusion defects. IMPRESSION: Low risk, normal pharm nuclear stress test from inducible ischemia standpoint. Normal left ventricular size, wall motion, and systolic function (EF post stress 94%). No prior nuclear stress test available for comparison. Dictated by: Maria Elena Jones MD on 02/06/2025 at 16:53 Approved by: Maria Elena Jones MD on 02/06/2025 at 16:54
== END ==
LOC: NUCM 09:59
PROVIDERS: PCP Nurse Practitioner Family; Referring Provider Internal Medicine Cardiovascular Disease; Visit Provider Internal Medicine Cardiovascular Disease
DX: Z00.00 Encounter for general adult medical examination without abnormal findings (principal); I50.32 Chronic diastolic (congestive) heart failure; E78.00 Pure hypercholesterolemia, unspecified; R07.89 Other chest pain
CPT/HCPCS: 78452; 93017; A9502; J2785

== ENCOUNTER → 2025-10-06 12:25 | Outpatient (CLI) | payer MEDICARE, OTHER, SELFPAY ==
--- NOTE | 2025-10-06 12:28 | DI.RAD.S_ITS ---
PROCEDURE: XR CHEST 2V INDICATIONS: cough TECHNIQUE: 2 views of the chest were acquired. COMPARISON: Outside Facility, CT, CT CHEST WO CON, 02/25/2025, 10:00. [facility], CR, XR CHEST 2V, 07/31/2022, 14:49. [facility], CR, XR CHEST 1V, 05/20/2020, 9:38. FINDINGS: Surgical changes and devices: None. Lungs and pleura: Bronchial wall thickening is noted. Fullness is present in the right hilar region. Right lung volume loss with rightward shift of the mediastinal structures. Mild right costophrenic angle blunting. Calcified right upper lobe granulomas. Probable COPD. Mediastinum: Mediastinal contours appear normal. Heart size is normal. Atheromatous plaques are noted thoracic aorta. Bones and chest wall: No suspicious bony abnormalities. Soft tissues appear unremarkable. Multilevel degenerative disc disease noted. IMPRESSION: Bronchial wall thickening may represent bronchitis or reactive airways disease. Right lung volume loss with rightward shift of the mediastinal structures. Right hilar fullness may represent the sequela of scarring or previous treatment. Dictated by: Shy Cho M.D. on 10/06/2025 at 20:28 Approved by: Shy Cho M.D. on 10/06/2025 at 20:30
== END ==
LOC: RAD 12:28
PROVIDERS: PCP Nurse Practitioner Family; Referring Provider Internal Medicine Critical Care Medicine; Visit Provider Internal Medicine Critical Care Medicine
DX: J44.9 Chronic obstructive pulmonary disease, unspecified (principal); J98.4 Other disorders of lung
CPT/HCPCS: 71046